=== PATIENT | female | born 1930 | race Caucasian/White ===

== ENCOUNTER 2017-07-17 06:18 | Inpatient (IN) | payer MEDICARE, OTHER ==
[~2017-07-17] VITALS: Ht 162.6 cm; Wt 61.8 kg
[2017-07-17 06:30] VITALS: Ht 162.6 cm; Wt 61.8 kg
[2017-07-17] MEDS ORDERED: NITROGLYCERIN 50 MG/D5W (PMX) 250 ML IV STA (06:30)
[2017-07-17] MEDS ORDERED: HEPARIN 25000 UNITS/250 ML 250 ML IV STA (06:30)
[2017-07-17 06:48] LABS: BASOPHIL # 0.1 10^3/ul (0.0-0.1); BASOPHILS % 0.4 % (0.0-2.0); EOSINOPHILS # 0.3 10^3/ul (0.0-0.5); EOSINOPHILS % 1.9 % (0.0-7.0); HEMATOCRIT 34.8 % (37.0-47.0); HEMOGLOBIN 10.9 g/dl (12.0-16.0); LYMPHOCYTES # 1.7 10^3/ul (0.8-2.9); LYMPHOCYTES % 11.9 % (15.0-51.0); MEAN CORPUSCULAR HEMOGLOBIN 26.7 pg (29.0-33.0); MEAN CORPUSCULAR HGB CONC 31.3 g/dl (32.0-37.0); MEAN CORPUSCULAR VOLUME 85.3 fl (82.0-101.0); MEAN PLATELET VOLUME 10.3 fl (7.4-10.4); MONOCYTE # 0.9 10^3/ul (0.3-0.9); NEUTROPHIL # 11.2 10^3/ul (1.6-7.5); NEUTROPHILS % 79.4 % (39.0-77.0); PLATELET COUNT 227 10^3/UL (140-415); RED BLOOD COUNT 4.08 10^6/ul (4.20-5.40); RED CELL DISTRIBUTION WIDTH 13.5 % (11.5-14.5); WHITE BLOOD COUNT 14.1 10^3/ul (4.8-10.8)
--- NOTE | 2017-07-17 06:55 | RADRPT ---
PROCEDURE: XR Chest. CLINICAL INDICATION: Chest Pain. TECHNIQUE: AP portable chest COMPARISON: None. FINDINGS: The patient is tilted to the left rotated to the right with a poor inspiration. There is a moderate dextrorotoscoliosis of the thoracolumbar spine. The heart is mildly enlarged. There is atheroscleros is of the aorta. Bilateral interstitial lung disease likely all chronic. Increased density at the ba ses is likely due to a combination of technique atelectasis and scarring. Left basilar infiltrate ca nnot be excluded. No definite pulmonary vascular congestion. There is atherosclerosis of the aorta. The bones are osteopenic. IMPRESSION: 1. Mild cardiomegaly and bilateral chronic interstitial lung disease without congestive heart failu re. 2. Increased density at the bases more so left base likely all due to technique atelectasis and sca rring however basilar infiltrates at the left base cannot be excluded. RPTAT:AAJJ Physician Kasi Date Time Electronically viewed and signed by Physician Kasi on 07/17/2017 06:55 BM/
[2017-07-17] MEDS ORDERED: ASPIRIN 300 MG SUPP PR ONE (07:00)
[2017-07-17 07:10] LABS: CREATININE 1.75 mg/dl (0.44-1.00); POTASSIUM 4.5 mmol/L (3.5-5.1)
[2017-07-17 07:27] LABS: TROPONIN-I 1.84 ng/ml (0.00-0.12)
[2017-07-17 07:43] LABS: AADO2 Arterial 190.5 mmHg (7.0-24.0); Allen Test ACCEPTAB; Arterial Base Excess 0 mmol/L (-3.0-3); Arterial COHb 0.3 % (0.0-3.0); Arterial MetHb 0.3 % (0.0-1.5); Arterial Total Hemglobin 10.9 g/dl (12.0-18.0); Blood Gas IEPAP 15/5; Blood Gas PS 10; MODE MASK - BIPAP
[2017-07-17] MEDS ORDERED: SIMV20TA PO (07:54)
[2017-07-17] MEDS ORDERED: GABA100C14 PO (07:55)
[2017-07-17] MEDS ORDERED: AMLO5TAB4 PO (07:55)
[2017-07-17] MEDS ORDERED: CARV12.579 PO (07:56)
[2017-07-17] MEDS ORDERED: DONE10TA7 PO (07:57)
[2017-07-17] MEDS ORDERED: OMEP20CA16 PO (07:58)
--- NOTE | 2017-07-17 08:23 | ERD ---
ER Documentation Chief Complaint Chief Complaint Pt BIB RA mayers from [facility] for possible STEMI. HPI Patient is an 86-year-old female with hypertension who presents as a possible STEMI. Please note the history and physical exam is limited secondary to the patient's shortness of breath and being on BiPAP. The patient was transferred from [facility] as a possible STEMI. She was accepted to the ER by Dr. Prado my partner. The patient had a positive troponin at [facility] as well. She was started on heparin and nitroglycerin drips. She started with shortness of breath and chest pain at 4 AM this morning that was left-sided and constant. She was hypoxic at [facility]. 0 450 she had a troponin of 1.586 at [facility]. Upon review of old medical records this is the patient's first visit to [facility]. ROS All systems reviewed and are negative except as per history of present illness. Medications Home Meds Reported Medications Omeprazole* (Omeprazole*) 20 Mg Capsule.dr, 20 MG PO DAILY, #30 CAP 07/17/17 Donepezil* (Aricept*) 10 Mg Tablet, 10 MG PO DAILY, TAB 07/17/17 Carvedilol* (Carvedilol*) 12.5 Mg Tablet, 12.5 MG PO BID, #60 TAB 07/17/17 Gabapentin* (Gabapentin*) 100 Mg Capsule, 100 MG PO BID, #90 CAP 07/17/17 Amlodipine Besylate* (Norvasc*) 5 Mg Tablet, 5 MG PO DAILY, TAB 07/17/17 Simvastatin* (Zocor*) 20 Mg Tablet, 20 MG PO QHS, #30 TAB 07/17/17 Allergies Allergies: Coded Allergies: No Known Allergy (Unverified , 07/17/17) PMhx/Soc History of Surgery: Yes (B Cataract surgery) Anesthesia Reaction: No Hx Neurological Disorder: No Hx Respiratory Disorders: No Hx Cardiac Disorders: No Hx Psychiatric Problems: No Hx Miscellaneous Medical Probl: No Hx Alcohol Use: No Hx Substance Use: No Hx Tobacco Use: No Smoking Status: Never smoker FmHx Family History: coronary disease Physical Exam Vitals Vital Signs Date Time Temp Pulse Resp B/P Pulse Ox O2 Delivery O2 Flow Rate FiO2 07/17/17 07:52 98 3.0 07/17/17 06:30 98.7 75 18 150/80 99 07/17/17 06:25 93 99 100 Physical Exam Const: Moderate distress Head: Atraumatic Eyes: Normal Conjunctiva ENT: Normal External Ears, Nose and Mouth. Neck: Full range of motion..~ No meningismus. Resp: Clear to auscultation bilaterally Cardio: Regular rate and rhythm, no murmurs Abd: Soft, non tender, non distended. Normal bowel sounds Skin: No petechiae or rashes Back: No midline or flank tenderness Ext: No cyanosis, or edema Neur: Awake and alert Psych: Normal Mood and Affect Result Diagram: 07/17/1735 07/17/17 0635 Results 24 hrs Laboratory Tests Test 07/17/17 06:30 07/17/17 06:35 Blood Gas Specimen Source Blood arterial Arterial Blood Date Drawn 07/17/2017 7:30:31 AM Arterial Blood pH (Temp corrected) 7.395 Arterial Blood pCO2 (Temp correct) 41.7mmhg Arterial Blood pO2 (Temp corrected) 480.8mmHG Arterial Blood HCO3 25.0mmol/L Arterial Blood Base Excess 0mmol/L Arterial Blood Oxygen Saturation 99.6mmHG Ludwig Test ACCEPTAB Arterial Blood Gas Puncture Site Left Radial Arterial Blood Carboxyhemoglobin 0.3% Arterial Blood Methemoglobin 0.3% Blood Gas A-a O2 Differential 190.5mmHg Oxyhemoglobin Percent 99.0% Total Hemoglobin 10.9g/dl Blood Gas Temperature 37.0C Blood Gas Respiration Rate 16.0 Blood Gas Actual Respiration Rate 29 Blood Gas Modality MASK - BIPAP FiO2 100.0% Blood Gas Pressure Support 10 Blood Gas IPAP/EPAP Ratio 15/5 Blood Gas Notified Whom Chrissy Blood Gas Notified Time 07/17/2017 7:42:09 AM White Blood Count 14.110^3/ul Red Blood Count 4.0810^6/ul Hemoglobin 10.9g/dl Hematocrit 34.8% Mean Corpuscular Volume 85.3fl Mean Corpuscular Hemoglobin 26.7pg Mean Corpuscular Hemoglobin Concent 31.3g/dl Red Cell Distribution Width 13.5% Platelet Count 99337^3/UL Mean Platelet Volume 10.3fl Neutrophils % 79.4% Lymphocytes % 11.9% Monocytes % 6.0% Eosinophils % 1.9% Basophils % 0.4% Nucleated Red Blood Cells % 0.0/100WBC Neutrophils # 11.210^3/ul Lymphocytes # 1.710^3/ul Monocytes # 0.910^3/ul Eosinophils # 0.310^3/ul Basophils # 0.110^3/ul Nucleated Red Blood Cells # 0.010^3/ul Sodium Level 141mmol/L Potassium Level 4.5mmol/L Chloride Level 106mmol/L Carbon Dioxide Level 25mmol/L Anion Gap 15 Blood Urea Nitrogen 41mg/dl Creatinine 1.75mg/dl Glucose Level 169mg/dl Calcium Level 9.0mg/dl Troponin I 1.840ng/ml Current Medications Medications (Trade) Dose Ordered Sig/Lauren Route PRN Reason Start Time Stop Time Status Last Admin Dose Admin Nitroglycerin/ Dextrose 250 ml @ 6 mls/hr ONCE STAT IV 07/17/17 06:30 07/19/17 00:09 07/17/17 07:25 Heparin Sodium (Porcine) (Heparin 85074 Units/250 ml) 250 ml @ 0 mls/hr ONCE STAT IV 07/17/17 06:30 07/17/17 06:32 DC 07/17/17 07:43 Aspirin (Aspirin) 300 mg ONCE ONCE MA 07/17/17 07:00 07/17/17 07:01 DC 07/17/17 07:40 Procedures/MDM EKG read by me: Rate/Rhythm: Regular rate and rhythm at a rate of 98 Intervals: Normal Impression: Bifascicular block with ST depressions in lead aVL and V1 and V2 but no ST elevations EKG #2 pending at this time PROCEDURE: XR Chest. CLINICAL INDICATION: Chest Pain. TECHNIQUE: AP portable chest COMPARISON: None. FINDINGS: The patient is tilted to the left rotated to the right with a poor inspiration. There is a moderate dextrorotoscoliosis of the thoracolumbar spine. The heart is mildly enlarged. There is atherosclerosis of the aorta. Bilateral interstitial lung disease likely all chronic. Increased density at the bases is likely due to a combination of technique atelectasis and scarring. Left basilar infiltrate cannot be excluded. No definite pulmonary vascular congestion. There is atherosclerosis of the aorta. The bones are osteopenic. IMPRESSION: 1. Mild cardiomegaly and bilateral chronic interstitial lung disease without congestive heart failure. 2. Increased density at the bases more so left base likely all due to technique atelectasis and scarring however basilar infiltrates at the left base cannot be excluded. RPTAT:AAJJ Physician Kasi Date Time Electronically viewed and signed by Physician Kasi on 07/17/2017 06:55 Patient is an 86-year-old female presents with respiratory failure and acute NSTEMI. There is no sign of STEMI at this time on our EKG or the EKG from [facility]. The patient will be admitted to the panel team under the care of Dr. Rodriguez to the ICU. I also spoke with Dr. Gr from cardiology who requested an echocardiogram and will see the patient for possible urgent cardiac catheterization. The patient has been weaned from BiPAP to nasal cannula oxygen. The patient will be kept n.p.o. The patient is currently on heparin and nitroglycerin drip. I doubt sepsis, pneumonia, pneumothorax, or pulmonary embolism. Critical Care: Time: 35 minutes excluding all billable procedures. Treatments/Evaluations: Close monitoring and treatment of unstable vital signs, cardiorespiratory, and neurologic status, while maintaining tight balance of fluid, respiratory, and cardiac interventions. Departure Diagnosis: Primary Impression: NSTEMI (non-ST elevated myocardial infarction) Additional Impression: Respiratory failure Chronicity: acute Respiratory failure complication: hypoxia Qualified Code : J96.01 - Acute respiratory failure with hypoxia Condition: Critical SOLIS PELAYO MD Jul 17, 2017 08:23
--- NOTE | 2017-07-17 09:26 | HP ---
Date/Time of Note Date/Time of Note DATE: 07/17/17 TIME: 09:14 Assessment/Plan VTE Prophylaxis VTE Prophylaxis Intervention: heparin Lines/Catheters IV Catheter Type (from [facility] Saline Lock Assessment/Plan Assessment/Plan 86-year-old possible STEMI who was transferred from [facility] as, but was reviewed by ER physician here and was determined not to be an actual STEMI. She is currently managed as follows: 1. Non-ST elevation myocardial infarction 2. Acute respiratory failure likely secondary to #1 3. Acute renal failure rule out chronic kidney disease 4. Hypochromic anemia likely chronic 5. Acute resp infection likely L basal pneumonia 6. Chronic hypertension 7. History of dyslipidemia on simvastatin Plan: Admit tele / ICU Urgent cardiology review / heparin drip / gentle hydration if ok with cardiology / 2D echo to eval for HF also include empiric abx and moss culture Possible nephro consult serial labs and supportive care Pain control, antiemetics and antipyretics as needed Further interventions per clincal course close monitoring and supportive care HPI/ROS Admit Date/Time Admit Date/Time 07/17/17 Hx of Present Illness 86-year-old female was referred to emergency room from [facility] as a possible ST elevation myocardial infarction. Patient was found to have elevated troponins and there was report of ST elevations on EKG. However when she arrived here, the emergency room physicians could not find any evidence of STEMI. He recommended admission as a non-ST elevation myocardial infarction. However patient's family reports that patient has been ill for a few days now with fever [subjective], cough, and chills. There is a to go to the hospital was because she became short of breath, and when EMS arrived they also found that she had elevated blood pressures. He is being admitted for further management and care as well as cardiology review here. The patient denies abdominal pain or cramping, denies blood in urine or stool, denies also dysuria or hematuria. There are no passing out episodes, and there are no joint pain or extremity weakness. . ROS 12 point review if systems was done and pertinent findings are as noted. PMH/Family/Social Past Medical History 1. Hypertension 2. Dyslipidemia Past Surgical History Cataract surgery Family History Significant Family History: no pertinent family hx Social History Alcohol Use: none Smoking Status: Never smoker Drug Use: none Exam/Review of Systems Vital Signs Vitals VS - Last 72 Hours, by Label Date Time Temp Pulse Resp B/P Pulse Ox O2 Delivery O2 Flow Rate FiO2 07/17/17 08:16 98.7 80 20 142/75 99 Nasal Cannula 3.0 07/17/17 07:52 98 3.0 07/17/17 06:30 98.7 75 18 150/80 99 07/17/17 06:25 93 99 100 Vital Signs Date Time Temp Pulse Resp B/P Pulse Ox O2 Delivery O2 Flow Rate FiO2 07/17/17 08:16 98.7 80 20 142/75 99 Nasal Cannula 3.0 07/17/17 06:25 100 Exam Constitutional: alert, frail, other (acutely ill looking) Head: normocephalic Eyes: PERRL ENMT: No mucosa pink and moist (Issue into the stomach think you should know the up to 1 patient when the EKG when the) Respiratory: crackles/rales, diminished breath sounds, wheezing Cardiovascular: murmurs/extra sounds, regular rate and rhythm Gastrointestinal: bowel sounds, non-tender, soft Extremities: edema Neurological: lethargic Labs Result Diagram: 07/17/17 0635 07/17/17 0635 Procedures Procedures Laboratory Tests Test 07/17/17 06:30 07/17/17 06:35 Blood Gas Specimen Source Blood arterial Arterial Blood Date Drawn 07/17/2017 7:30:31 AM Arterial Blood pH (Temp corrected) 7.395 Arterial Blood pCO2 (Temp correct) 41.7mmhg Arterial Blood pO2 (Temp corrected) 480.8mmHG Arterial Blood HCO3 25.0mmol/L Arterial Blood Base Excess 0mmol/L Arterial Blood Oxygen Saturation 99.6mmHG Ludwig Test ACCEPTAB Arterial Blood Gas Puncture Site Left Radial Arterial Blood Carboxyhemoglobin 0.3% Arterial Blood Methemoglobin 0.3% Blood Gas A-a O2 Differential 190.5mmHg Oxyhemoglobin Percent 99.0% Total Hemoglobin 10.9g/dl Blood Gas Temperature 37.0C Blood Gas Respiration Rate 16.0 Blood Gas Actual Respiration Rate 29 Blood Gas Modality MASK - BIPAP FiO2 100.0% Blood Gas Pressure Support 10 Blood Gas IPAP/EPAP Ratio 15/5 Blood Gas Notified Whom Chrissy Blood Gas Notified Time 07/17/2017 7:42:09 AM White Blood Count 14.110^3/ul Red Blood Count 4.0810^6/ul Hemoglobin 10.9g/dl Hematocrit 34.8% Mean Corpuscular Volume 85.3fl Mean Corpuscular Hemoglobin 26.7pg Mean Corpuscular Hemoglobin Concent 31.3g/dl Red Cell Distribution Width 13.5% Platelet Count 75405^3/UL Mean Platelet Volume 10.3fl Neutrophils % 79.4% Lymphocytes % 11.9% Monocytes % 6.0% Eosinophils % 1.9% Basophils % 0.4% Nucleated Red Blood Cells % 0.0/100WBC Neutrophils # 11.210^3/ul Lymphocytes # 1.710^3/ul Monocytes # 0.910^3/ul Eosinophils # 0.310^3/ul Basophils # 0.110^3/ul Nucleated Red Blood Cells # 0.010^3/ul Sodium Level 141mmol/L Potassium Level 4.5mmol/L Chloride Level 106mmol/L Carbon Dioxide Level 25mmol/L Anion Gap 15 Blood Urea Nitrogen 41mg/dl Creatinine 1.75mg/dl Glucose Level 169mg/dl Calcium Level 9.0mg/dl Troponin I 1.840ng/ml Current Medications Medications (Trade) Dose Ordered Sig/Lauren Route PRN Reason Start Time Stop Time Status Last Admin Dose Admin Nitroglycerin/ Dextrose 250 ml @ 6 mls/hr ONCE STAT IV 07/17/17 06:30 07/19/17 00:09 07/17/17 07:25 6 MLS/HR Heparin Sodium (Porcine) (Heparin 91199 Units/250 ml) 250 ml @ 0 mls/hr ONCE STAT IV 07/17/17 06:30 07/17/17 06:32 DC 07/17/17 07:43 0 MLS/HR Aspirin (Aspirin) 300 mg ONCE ONCE MS 07/17/17 07:00 07/17/17 07:01 DC 07/17/17 07:40 300 MG PROCEDURE: XR Chest. CLINICAL INDICATION: Chest Pain. TECHNIQUE: AP portable chest COMPARISON: None. FINDINGS: The patient is tilted to the left rotated to the right with a poor inspiration. There is a moderate dextrorotoscoliosis of the thoracolumbar spine. The heart is mildly enlarged. There is atherosclerosis of the aorta. Bilateral interstitial lung disease likely all chronic. Increased density at the bases is likely due to a combination of technique atelectasis and scarring. Left basilar infiltrate cannot be excluded. No definite pulmonary vascular congestion. There is atherosclerosis of the aorta. The bones are osteopenic. IMPRESSION: 1. Mild cardiomegaly and bilateral chronic interstitial lung disease without congestive heart failure. 2. Increased density at the bases more so left base likely all due to technique atelectasis and scarring however basilar infiltrates at the left base cannot be excluded. RPTAT:AAJJ Physician Kasi Date Time Electronically viewed and signed by Physician Kasi on 07/17/2017 06:55 BM/ CC: SOLIS PELAYO MD I reviewed EKG Rate: Rhythm: Note: BRIA COFFEY Jul 17, 2017 09:25
[2017-07-17] MEDS ORDERED: morphine 2 MG INJ IV PRN (09:30)
[2017-07-17] MEDS ORDERED: SOD CHLORIDE 0.9% 1,000 ML IV SCH (09:30)
[2017-07-17 10:06] LABS: ALBUMIN 3.7 g/dl (3.3-4.9); BILIRUBIN,INDIRECT 0.3 mg/dl (0-1.1); BILIRUBIN,TOTAL 0.3 mg/dl (0.2-1.3); MAGNESIUM 1.9 mg/dl (1.7-2.5); TOTAL PROTEIN 7.4 g/dl (6.1-8.1)
[2017-07-17 10:29] LABS: ADD UMIC YES; UR ASCORBIC ACID NEGATIVE (NEGATIVE); UR BACTERIA FEW /HPF (NONE SEEN); UR BILIRUBIN (Dip) NEGATIVE (NEGATIVE); UR BLOOD (Dip) 2+ mg/dL (NEGATIVE); UR CLARITY CLEAR (CLEAR); UR COLOR YELLOW (YELLOW); UR GLUCOSE (Dip) NEGATIVE (NEGATIVE); UR KETONES (Dip) NEGATIVE (NEGATIVE); UR LEUKOCYTE ESTERASE (Dip) NEGATIVE Leu/ul (NEGATIVE); UR NITRITE (Dip) NEGATIVE (NEGATIVE); UR RBC 65 /HPF (0-5); UR SPECIFIC GRAVITY (Dip) 1.018 (1.003-1.030); UR TOTAL PROTEIN (Dip) 2+ mg/dl (NEGATIVE); UR UROBILINOGEN (Dip) NEGATIVE (NEGATIVE)
--- NOTE | 2017-07-17 11:27 | RADRPT ---
Echocardiogram Report Patient Name: GIUSEPPE HOOK Gender: Female Date: 1930 Study Date: 17-Jul-2017 [facility] Specialist: Gage Dang [facility] Location: [facility] Ref. Physician: SOLIS PELAYO Quality: Adequate Procedures: Transthoracic echocardiogram with complete 2D, M-Mode, and doppler examination. Indications: NSTEMI. 2D/M Mode Doppler Measurement Value Normal Ranges Measurement Value Normal Ranges LVIDd 2D 4.3 3.5 - 5.6 cm SAW Vmax 0.5 cm2 LVIDs 2D 3.2 2.1 - 4.1 cm SAW VTI 0.5 cm2 LVPWd 2D 1.3 0.6 - 1.1 cm LVOT Mean Demetrius 0.6 m/sec IVSd 2D 1.3 0.6 - 1.1 cm LVOT Mean PG 1.5 mmHg AoR Diam 2D 2.8 2.0 - 3.7 cm LVOT Peak Demetrius 0.9 m/sec EDV 2D 84.0 cm3 LVOT Peak PG 3.3 mmHg ESV 2D 34.0 cm3 LVOT VTI 27.1 cm LA Dimen 2D 4.2 2.3 - 4.0 cm MV E Peak Demetrius 1.7 m/sec LVOT Diam 1.8 cm MV A Peak Demetrius 1.9 m/sec MV E/A 0.9 MV Decel Time 159 msec MV Decel [place] 10 MV E/A 0.9 TR Peak Demetrius 3.7 m/sec TR Peak PG 56.0 mmHg RVSP 71.0 mmHg Findings Left Ventricle: Normal left ventricular systolic function. Normal left ventricular cavity size. Moderate concentric left ventricular hypertrophy. Ejection fraction is visually estimated at 55 %. Tissue Doppler/Mitral Doppler indices are consistent with impaired relaxation (Stage I diastolic dysfunction). Right Ventricle: Normal right ventricular size. Normal right ventricular systolic function. Left Atrium: There is mild enlargement of left atrium. Right Atrium: The right atrium is normal in size. Mitral Valve: Mild mitral leaflet calcification. Mild mitral annular calcification. Mild mitral valve regurgitation. Aortic Valve: Severe aortic stenosis. Aortic valve Max velocity 4.69 m/sec. Mean PG 52.00 mmHg. Aortic cusps appear moderately calcified. Trace aortic valve regurgitation. Tricuspid Valve: Normal appearance of the tricuspid valve. Estimated peak PA systolic pressure 71 mmHg. There is mild tricuspid regurgitation. Pulmonic Valve: Pulmonic valve not well visualized. There is mild pulmonic regurgitation. Pericardium: Normal pericardium with no significant pericardial effusion. Aorta: Normal aortic root. IVC: Dilated inferior vena cava with poor inspiratory collapse consistent with elevated right atrial pressures. Conclusions Normal left ventricular systolic function. Normal left ventricular cavity size. Moderate concentric left ventricular hypertrophy. Ejection fraction is visually estimated at 55 %. Tissue Doppler/Mitral Doppler indices are consistent with impaired relaxation (Stage I diastolic dysfunction). Normal right ventricular size. Normal right ventricular systolic function. There is mild enlargement of left atrium. The right atrium is normal in size. Severe aortic stenosis. Trace aortic valve regurgitation. Mild mitral valve regurgitation. Estimated peak PA systolic pressure 71 mmHg. There is mild tricuspid regurgitation. There is mild pulmonic regurgitation. Normal pericardium with no significant pericardial effusion. Electronically Signed By: Harjinder Drew 17-Jul-2017 11:27:09 -0800 Patient Name: GIUSEPPE HOOK Study Date: [id number]
[2017-07-17] MEDS ORDERED: FUROSEMIDE 40 MG INJ IV ONE ×2 (11:30→19:30)
[2017-07-17 11:52] LABS: CALCIUM 8.9 mg/dl (8.4-10.2); CREATININE 1.68 mg/dl (0.44-1.00); POTASSIUM 4.7 mmol/L (3.5-5.1)
[2017-07-17 12:04] LABS: CK-MB 3.01 ng/ml (0.0-2.4)
[2017-07-17 12:05] LABS: TROPONIN-I 2.24 ng/ml (0.00-0.12)
--- NOTE | 2017-07-17 12:53 | CONS ---
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 Patient was initially on BiPAP and not currently off. She denies any chest discomfort. Echocardiogram with preserved ejection fraction with evidence of severe aortic stenosis and dilated IVC. Extensive discussion had with the patient and family at bedside. Family at the current time is requesting a conservative approach given the concerned of the risks of cardiac catheterization. Would continue IV heparin, IV diuretics, serial cardiac enzymes, aspirin and statin therapy. Consultation Date/Type/Reason Admit Date/Time 07/17/17 Type of Consultation: cv Reason for Consultation Shortness of breath and elevated troponin Hx of Present Illness This is an 86-year-old female with past medical history of hypertension who has been having 4-5 days symptoms of chills, productive cough and fatigue. Symptoms have worsened throughout the past few days. Yesterday evening, patient woke up with shortness of breath and palpitations. She denies any chest discomfort. She was walking to the bathroom and she felt her shortness of breath worsen so she called her family from the other room. As per the [id number], patient's blood pressure was quite elevated when EMS arrived. Patient was initially transferred to an outside hospital and then transferred to our facility for further management care. Patient was put on IV heparin, nitroglycerin and BiPAP with significant improvement in symptoms. Her shortness of breath is mildly present but significantly improved. She denies any chest discomfort, palpitations or dizziness. She does still complain of a cough and wheezing. 12 point review of systems was performed with all pertinent positives and negatives mentioned above and all else is negative Past Medical History Medical History: high cholesterol, hypertension Past Surgical History Past Surgical Hx: no surgical history Family History Significant Family History: no pertinent family hx Social History Alcohol Use: none Smoking Status: Never smoker Other Social History Lives at home with family Exam/Review of Systems Vital Signs Vitals Vital Signs Date Time Temp Pulse Resp B/P Pulse Ox O2 Delivery O2 Flow Rate FiO2 07/17/17 11:50 98.7 78 20 149/79 100 Nasal Cannula 3.0 07/17/17 06:25 100 Exam Coughing at times during exam, occasionally dyspneic Constitutional: alert, oriented Head: normocephalic Respiratory: other (Coarse breath sounds bilaterally with scattered rhonchi and mild and expiratory wheezing) Cardiovascular: regular rate and rhythm, systolic murmur Gastrointestinal: bowel sounds, non-tender, soft Extremities: edema Results Result Diagram: 07/17/17 0635 07/17/17 1100 Results 24 hrs Laboratory Tests Test 07/17/17 06:30 07/17/17 06:35 07/17/17 09:50 07/17/17 11:00 Blood Gas Specimen Source Blood arterial Arterial Blood Date Drawn 07/17/2017 7:30:31 AM Arterial Blood pH (Temp corrected) 7.395 Arterial Blood pCO2 (Temp correct) 41.7 Arterial Blood pO2 (Temp corrected) 480.8 H Arterial Blood HCO3 25.0 Arterial Blood Base Excess 0 Arterial Blood Oxygen Saturation 99.6 Ludwig Test ACCEPTAB Arterial Blood Gas Puncture Site Left Radial Arterial Blood Carboxyhemoglobin 0.3 Arterial Blood Methemoglobin 0.3 Blood Gas A-a O2 Differential 190.5 H Oxyhemoglobin Percent 99.0 Total Hemoglobin 10.9 L Blood Gas Temperature 37.0 Blood Gas Respiration Rate 16.0 Blood Gas Actual Respiration Rate 29 Blood Gas Modality MASK - BIPAP FiO2 100.0 Blood Gas Pressure Support 10 Blood Gas IPAP/EPAP Ratio 15/5 Blood Gas Notified Whom M.DChristina Blood Gas Notified Time 07/17/2017 7:42:09 AM Magnesium Level 1.9 Total Bilirubin 0.3 Direct Bilirubin 0.00 Indirect Bilirubin 0.3 Aspartate Amino Transf (AST/SGOT) 49 H Alanine Aminotransferase (ALT/SGPT) 45 Alkaline Phosphatase 109 Total Protein 7.4 Albumin 3.7 White Blood Count 14.1 H Red Blood Count 4.08 L Hemoglobin 10.9 L Hematocrit 34.8 L Mean Corpuscular Volume 85.3 Mean Corpuscular Hemoglobin 26.7 L Mean Corpuscular Hemoglobin Concent 31.3 L Red Cell Distribution Width 13.5 Platelet Count 227 Mean Platelet Volume 10.3 Neutrophils % 79.4 H Lymphocytes % 11.9 L Monocytes % 6.0 Eosinophils % 1.9 Basophils % 0.4 Nucleated Red Blood Cells % 0.0 Neutrophils # 11.2 H Lymphocytes # 1.7 Monocytes # 0.9 Eosinophils # 0.3 Basophils # 0.1 Nucleated Red Blood Cells # 0.0 Sodium Level 141 140 Potassium Level 4.5 4.7 Chloride Level 106 105 Carbon Dioxide Level 25 24 Anion Gap 15 16 Blood Urea Nitrogen 41 H 40 H Creatinine 1.75 H 1.68 H Glucose Level 169 135 Calcium Level 9.0 8.9 Troponin I 1.840 *H 2.240 *H Urine Color YELLOW Urine Clarity CLEAR Urine pH 5.0 Urine Specific [place] 1.018 Urine Ketones NEGATIVE Urine Nitrite NEGATIVE Urine Bilirubin NEGATIVE Urine Urobilinogen NEGATIVE Urine Leukocyte Esterase NEGATIVE Urine Microscopic RBC 65 H Urine Microscopic WBC 1 Urine Bacteria FEW A Urine Hemoglobin 2+ H Urine Glucose NEGATIVE Urine Total Protein 2+ H Creatine Kinase 153 Creatine Kinase Index 2.0 Creatinine Kinase MB (Mass) 3.01 H Test 07/17/17 11:34 Activated Partial Thromboplast Time 80.3 *H Mix PTT Normal Plasma Immediate Pending Medications Medications Current Medications Amlodipine Besylate (Norvasc) 5 mg DAILY PO ; Start 07/18/17 at 09:00 Carvedilol (Coreg) 12.5 mg BID PO ; Start 07/17/17 at 21:00 Donepezil HCl (Aricept) 10 mg DAILY PO ; Start 07/18/17 at 09:00 Gabapentin (Neurontin) 100 mg BID PO ; Start 07/17/17 at 21:00 Pantoprazole (Protonix Tab) 40 mg DAILY@06 PO ; Start 07/18/17 at 06:00 Atorvastatin Calcium (Lipitor) 20 mg HS PO ; Start 07/17/17 at 21:00 Ondansetron HCl 4 mg 4 mg Q6H PRN IV NAUSEA AND/OR VOMITING; Start 07/17/17 at 09:30 Sodium Chloride (NS) 1,000 ml @ 75 mls/hr [id number] IV Last administered on t 09:39; Admin Dose 75 MLS/HR; Start 07/17/17 at 09:30; Stop 07/18/17 at 12:09 Morphine Sulfate (morphine) 2 mg Q4H PRN IV pain; Start 07/17/17 at 09:30 Docusate Sodium (Colace) 100 mg BID PO ; Start 07/17/17 at 21:00 Procedures Procedures ECG sinus rhythm at 86 bpm, PACs, right bundle branch block, nonspecific ST abnormalities, QRS 134 ms Harjinder Drew DO Jul 17, 2017 12:53
[2017-07-17] MEDS ORDERED: MAGNESIUM SULFATE 1 GM/D5W 100 ML IVPB ONE (13:00)
[2017-07-17] MEDS: CEFTRIAXONE 1 GM/50 ML (PMX) 50 ML IVPB SCH (15:15)
[2017-07-17] MEDS: AZITHROMYCIN 500MG/NS (PMX) 250 ML IVPB SCH (15:34)
[2017-07-17 18:19] LABS: CK-MB 2.99 ng/ml (0.0-2.4); TROPONIN-I 2.23 ng/ml (0.00-0.12)
[2017-07-17] MEDS ORDERED: hydrALAzine 20 MG INJ IV PRN (18:30)
[2017-07-17] MEDS ORDERED: NITROGLYCERIN (SL) 0.4 MG TAB SL ONE (19:00)
--- NOTE | 2017-07-17 19:49 | RADRPT ---
PROCEDURE: XR Chest. CLINICAL INDICATION: Dyspnea. TECHNIQUE: Single frontal view of the chest. COMPARISON: Plain film chest dated today, about 1 hour ago. FINDINGS: Dual chest wall transcutaneous cardiac pacer is. Cardiomegaly. Atherosclerotic calcifications in the thoracic aorta. Pulmonary mass congestion and patchy air space disease at lung bases. Airspace dise ase is mildly decreased over the interval.. No signs of pleural fluid or pneumothorax are seen. The osseous structures and soft tissues are unremarkable. IMPRESSION: Cardiomegaly and decreased mild to moderate failure. RPTAT: [facility] Physician Larisa Date Time Electronically viewed and signed by Physician Larisa on 07/17/2017 19:49 RS/
[2017-07-17 19:57] LABS: INR 1.02; PROTIME 13.5 Sec (11.9-14.9); PT RATIO 1.1
[2017-07-17 20:11] LABS: PARTIAL THROMBOPLASTIN TIME 72.9 Sec (25.0-35.0)
[2017-07-17] MEDS: GABAPENTIN 100 MG CAP PO SCH (20:36)
[2017-07-17] MEDS ORDERED: ATORVASTATIN 20 MG TAB PO SCH (21:00)
[2017-07-17] MEDS: DOCUSATE SODIUM 100 MG CAP PO SCH (21:06)
[2017-07-17] MEDS: ATORVASTATIN 20 MG TAB PO SCH (21:07)
[2017-07-17 22:18] LABS: CK-MB 2.68 ng/ml (0.0-2.4)
[2017-07-17 22:22] LABS: TROPONIN-I 1.99 ng/ml (0.00-0.12)
[2017-07-18] VITALS (11 sets, daily range): BP systolic 86–126; BP diastolic 51–73; PULSE 69–87; RESP 19–33; TEMP 98
[2017-07-18 02:41] LABS: INR 1.11; PROTIME 14.5 Sec (11.9-14.9); PT RATIO 1.1
[2017-07-18 03:25] LABS: PARTIAL THROMBOPLASTIN TIME 76.6 Sec (25.0-35.0)
[2017-07-18] MEDS: DONEPEZIL 10 MG TAB PO SCH (03:57)
[2017-07-18 05:40] LABS: BASOPHILS % 0.2 % (0.0-2.0); EOSINOPHILS # 0.1 10^3/ul (0.0-0.5); HEMOGLOBIN 9.1 g/dl (12.0-16.0); MEAN CORPUSCULAR HEMOGLOBIN 26.9 pg (29.0-33.0); MEAN CORPUSCULAR HGB CONC 31.4 g/dl (32.0-37.0); MEAN CORPUSCULAR VOLUME 85.8 fl (82.0-101.0); MEAN PLATELET VOLUME 9.9 fl (7.4-10.4); MONOCYTE # 0.8 10^3/ul (0.3-0.9); MONOCYTES % 7.8 % (0.0-11.0); NEUTROPHIL # 7.2 10^3/ul (1.6-7.5); NEUTROPHILS % 70.7 % (39.0-77.0); PLATELET COUNT 218 10^3/UL (140-415); RED BLOOD COUNT 3.38 10^6/ul (4.20-5.40); RED CELL DISTRIBUTION WIDTH 13.4 % (11.5-14.5); WHITE BLOOD COUNT 10.2 10^3/ul (4.8-10.8)
[2017-07-18] MEDS ORDERED: FUROSEMIDE 40 MG INJ IV SCH ×3 (06:00→18:00)
--- NOTE | 2017-07-18 06:19 | RADRPT ---
PROCEDURE: XR Chest. CLINICAL INDICATION: CHF TECHNIQUE: AP Portable chest. COMPARISON: CHEST 07/17/2017; CHEST 07/17/2017 FINDINGS: Defibrillator pad overlies the lateral right chest. The cardiomediastinal silhouette is enlarged. The aortic arch is calcified. Interval decrease bilate ral interstitial densities. Probable trace pleural effusions or thickening. No pneumothorax is seen. The bones are demineralized. There are degenerative changes in the spine. IMPRESSION: Interval decreased edema. Cardiomegaly. Aortic atherosclerosis. Physician Aidan Date Time Electronically viewed and signed by Physician Aidan on 07/18/2017 06:18 CS/
[2017-07-18 06:39] LABS: CK-MB 1.65 ng/ml (0.0-2.4)
[2017-07-18 06:40] LABS: TROPONIN-I 2.3 ng/ml (0.00-0.12)
[2017-07-18] MEDS ORDERED: HEPARIN 25000 UNITS/250 ML 250 ML IV STA (07:29)
[2017-07-18 07:38] LABS: CALCIUM 8.6 mg/dl (8.4-10.2); CHOL/HDL RATIO 4.3 RATIO; CREATININE 1.97 mg/dl (0.44-1.00)
--- NOTE | 2017-07-18 09:37 | PN ---
Date/Time of Note Date/Time of Note DATE: 07/18/17 TIME: 09:37 Assessment/Plan VTE Prophylaxis VTE Prophylaxis Intervention: heparin (heparin drip) Lines/Catheters IV Catheter Type (from [facility], [place]): Saline Lock Assessment/Plan Assessment/Plan 86-year-old possible STEMI who was transferred from [facility] as, but was reviewed by ER physician here and was determined not to be an actual STEMI. She is currently managed as follows: 1. Non-ST elevation myocardial infarction 2. Acute respiratory failure likely secondary to #1 3. Acute renal failure rule out chronic kidney disease 4. Hypochromic anemia likely chronic 5. Acute resp infection likely L basal pneumonia 6. Chronic hypertension 7. History of dyslipidemia on simvastatin 8. 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 Severe aortic stenosis Plan: Continue heparin drip until d/c per cardiology Continue abx Nephro consult to help with diuresis Commence diet if ok with cards f/u final cultures continue supportive care defer decision to downgrade to cards. CC time > 40mins Subjective 24 Hr Interval Summary Free Text/Dictation patient looking and feeling better per family, still not speaking much but looks more comfortable, no chest pain Exam/Review of Systems Vital Signs Vitals Vital Signs Date Time Temp Pulse Resp B/P Pulse Ox O2 Delivery O2 Flow Rate FiO2 07/18/17 07:32 98 3.0 07/18/17 06:30 76 20 131/62 BIPAP 07/18/17 05:45 50 07/18/17 05:36 98.5 Intake and Output 07/17/17 07/17/17 07/18/17 15:00 23:00 07:00 Output Total 750 ml 300 ml Balance -750 ml -300 ml Exam Constitutional: alert, frail, oriented Head: normocephalic Eyes: PERRL ENMT: mucosa pink and moist Neck: supple Respiratory: diminished breath sounds, respirations (mild tachypnea) Cardiovascular: murmurs/extra sounds, regular rate and rhythm Gastrointestinal: bowel sounds, non-tender, soft Extremities: No edema Neurological: lethargic Results Result Diagram: 07/18/17 0532 07/18/17 0532 Results 24 hrs Laboratory Tests Test 07/17/17 09:50 07/17/17 11:00 07/17/17 11:34 07/17/17 17:20 Urine Color YELLOW Urine Clarity CLEAR Urine pH 5.0 Urine Specific [place] 1.018 Urine Ketones NEGATIVE Urine Nitrite NEGATIVE Urine Bilirubin NEGATIVE Urine Urobilinogen NEGATIVE Urine Leukocyte Esterase NEGATIVE Urine Microscopic RBC 65 H Urine Microscopic WBC 1 Urine Bacteria FEW A Urine Hemoglobin 2+ H Urine Glucose NEGATIVE Urine Total Protein 2+ H Sodium Level 140 Potassium Level 4.7 Chloride Level 105 Carbon Dioxide Level 24 Anion Gap 16 Blood Urea Nitrogen 40 H Creatinine 1.68 H Glucose Level 135 Calcium Level 8.9 Creatine Kinase 153 133 Creatine Kinase Index 2.0 2.2 Creatinine Kinase MB (Mass) 3.01 H 2.99 H Troponin I 2.240 *H 2.230 *H Activated Partial Thromboplast Time 80.3 *H Test 07/17/17 19:00 07/17/17 21:10 07/18/17 01:40 07/18/17 03:40 Prothrombin Time 13.5 14.5 Prothrombin Time Ratio 1.1 1.1 INR International Normalized Ratio 1.02 1.11 Activated Partial Thromboplast Time 72.9 *H 76.6 *H 59.8 H Creatine Kinase 111 Creatine Kinase Index 2.4 Creatinine Kinase MB (Mass) 2.68 H Troponin I 1.990 *H Test 07/18/17 05:32 07/18/17 07:38 White Blood Count 10.2 # Red Blood Count 3.38 L Hemoglobin 9.1 L Hematocrit 29.0 L Mean Corpuscular Volume 85.8 Mean Corpuscular Hemoglobin 26.9 L Mean Corpuscular Hemoglobin Concent 31.4 L Red Cell Distribution Width 13.4 Platelet Count 218 Mean Platelet Volume 9.9 Neutrophils % 70.7 Lymphocytes % 20.0 Monocytes % 7.8 Eosinophils % 1.0 Basophils % 0.2 Nucleated Red Blood Cells % 0.0 Neutrophils # 7.2 Lymphocytes # 2.0 Monocytes # 0.8 Eosinophils # 0.1 Basophils # 0.0 Nucleated Red Blood Cells # 0.0 Activated Partial Thromboplast Time 54.7 H 60.0 H Mix PTT Normal Plasma Immediate Pending Sodium Level 142 Potassium Level 4.0 Chloride Level 107 Carbon Dioxide Level 21 Anion Gap 18 H Blood Urea Nitrogen 44 H Creatinine 1.97 H Glucose Level 121 Calcium Level 8.6 Creatine Kinase 75 Creatine Kinase Index 2.2 Creatinine Kinase MB (Mass) 1.65 Troponin I 2.300 *H Triglycerides Level 145 Cholesterol Level 165 LDL Cholesterol, Calculated 98 HDL Cholesterol 38 Cholesterol/HDL Ratio 4.3 Thyroid Stimulating Hormone (TSH) Pending Medications Medications Current Medications Amlodipine Besylate (Norvasc) 5 mg DAILY PO ; Start 07/18/17 at 09:00 Carvedilol (Coreg) 12.5 mg BID PO Last administered on 07/17/17 21:06; Admin Dose 12.5 MG; Start 07/17/17 at 21:00 Donepezil HCl (Aricept) 10 mg DAILY PO ; Start 07/18/17 at 09:00 Gabapentin (Neurontin) 100 mg BID PO ; Start 07/17/17 at 21:00 Pantoprazole (Protonix Tab) 40 mg DAILY@06 PO ; Start 07/18/17 at 06:00 Ondansetron HCl (Zofran Inj) 4 mg Q6H PRN IV NAUSEA AND/OR VOMITING; Start at 09:30 Morphine Sulfate (morphine) 2 mg Q4H PRN IV pain; Start 07/17/17 at 09:30 Docusate Sodium (Colace) 100 mg BID PO Last administered on 07/17/17 21:06; Admin Dose 100 MG; Start 07/17/17 at 21:00 Atorvastatin Calcium (Lipitor) 80 mg HS PO Last administered on 07/17/17 21: 07; Admin Dose 80 MG; Start 07/17/17 at 21:00 Aspirin (Aspirin) 81 mg DAILY PO ; Start 07/18/17 at 09:00 Hydralazine HCl 10 mg 10 mg Q8H PO Last administered on 07/17/17 21:06; Admin Dose 10 MG; Start 07/17/17 at 21:00 Ceftriaxone Sodium 50 ml @ 100 mls/hr Q24H IVPB Last administered on 15:15; Admin Dose 100 MLS/HR; Start 07/17/17 at 15:00 Azithromycin (Zithromax 500mg/ NS (Pmx)) 250 ml @ 250 mls/hr Q24H IVPB Last administered on 07/17/17 15:34; Admin Dose 250 MLS/HR; Start 07/17/17 at 15: 00 Hydralazine HCl (Apresoline) 10 mg Q6H PRN IV sbp>150; Start 07/17/17 at 18:30 Furosemide (Lasix) 40 mg 06 IV Last administered on 07/18/17t 05:38; Admin Dose 40 MG; Start 07/18/17 at 06:00 Procedures Procedures PROCEDURE: Renal US. CLINICAL INDICATION: Acute kidney injury. TECHNIQUE: Multiple sonographic images of the kidneys and urinary bladder were obtained. The images were reviewed on a PACS workstation. COMPARISON: No prior studies are available for comparison. FINDINGS: The right kidney measures 9.9 cm. The left kidney measures 10.3 cm. There is no renal mass. There is no hydronephrosis. There is no renal calculus. Renal parenchymal thickness is normal bilaterally. Both kidneys are hyperechoic consistent with medical renal disease. The perirenal regions are normal with no fluid collection or mass. There is a Haddad catheter in the urinary bladder. IMPRESSION: 1. Bilateral hyperechoic kidneys consistent with medical renal disease. 2. No hydronephrosis. 3. Haddad catheter in the bladder. 4. Otherwise normal renal ultrasound. RPTAT: QQ .Hernandez Granados MD, Date Time Electronically viewed and signed by .Hernandez Granados MD, MD on 07/18/2017 15:33 .R/ CC: LUCRETIA SERRANO MD Echocardiogram Report Patient Name: GIUSEPPE HOOK Gender: Female Date: 1930 Study Date: 17-Jul-2017 Dean Of Women: Gage Dang [facility] Location: ER-4 Ref. Physician: SOLIS PELAYO Quality: Adequate Procedures: Transthoracic echocardiogram with complete 2D, M-Mode, and doppler examination. Indications: NSTEMI. 2D/M Mode Doppler Measurement Value Normal Ranges Measurement Value Normal Ranges LVIDd 2D 4.3 3.5 - 5.6 cm SAW Vmax 0.5 cm2 LVIDs 2D 3.2 2.1 - 4.1 cm ASW VTI 0.5 cm2 LVPWd 2D 1.3 0.6 - 1.1 cm LVOT Mean Demetrius 0.6 m/sec IVSd 2D 1.3 0.6 - 1.1 cm LVOT Mean PG 1.5 mmHg AoR Diam 2D 2.8 2.0 - 3.7 cm LVOT Peak Demetrius 0.9 m/sec EDV 2D 84.0 cm3 LVOT Peak PG 3.3 mmHg ESV 2D 34.0 cm3 LVOT VTI 27.1 cm LA Dimen 2D 4.2 2.3 - 4.0 cm MV E Peak Demetrius 1.7 m/sec LVOT Diam 1.8 cm MV A Peak Demetrius 1.9 m/sec MV E/A 0.9 MV Decel Time 159 msec MV Decel Tama 10 MV E/A 0.9 TR Peak Demetrius 3.7 m/sec TR Peak PG 56.0 mmHg RVSP 71.0 mmHg Findings Left Ventricle: Normal left ventricular systolic function. Normal left ventricular cavity size. Moderate concentric left ventricular hypertrophy. Ejection fraction is visually estimated at 55 %. Tissue Doppler/Mitral Doppler indices are consistent with impaired relaxation (Stage I diastolic dysfunction). Right Ventricle: Normal right ventricular size. Normal right ventricular systolic function. Left Atrium: There is mild enlargement of left atrium. Right Atrium: The right atrium is normal in size. Mitral Valve: Mild mitral leaflet calcification. Mild mitral annular calcification. Mild mitral valve regurgitation. Aortic Valve: Severe aortic stenosis. Aortic valve Max velocity 4.69 m/sec. Mean PG 52.00 mmHg. Aortic cusps appear moderately calcified. Trace aortic valve regurgitation. Tricuspid Valve: Normal appearance of the tricuspid valve. Estimated peak PA systolic pressure 71 mmHg. There is mild tricuspid regurgitation. Pulmonic Valve: Pulmonic valve not well visualized. There is mild pulmonic regurgitation. Pericardium: Normal pericardium with no significant pericardial effusion. Aorta: Normal aortic root. IVC: Dilated inferior vena cava with poor inspiratory collapse consistent with elevated right atrial pressures. Conclusions Normal left ventricular systolic function. Normal left ventricular cavity size. Moderate concentric left ventricular hypertrophy. Ejection fraction is visually estimated at 55 %. Tissue Doppler/Mitral Doppler indices are consistent with impaired relaxation (Stage I diastolic dysfunction). Normal right ventricular size. Normal right ventricular systolic function. There is mild enlargement of left atrium. The right atrium is normal in size. Severe aortic stenosis. Trace aortic valve regurgitation. Mild mitral valve regurgitation. Estimated peak PA systolic pressure 71 mmHg. There is mild tricuspid regurgitation. There is mild pulmonic regurgitation. Normal pericardium with no significant pericardial effusion. Electronically Signed By: Harjinder Drew 17-Jul-2017 11:27:09 0800 Patient Name: GIUSEPPE HOOK Study Date: 17-[id number] BRIA COFFEY Jul 18, 2017 09:37
[2017-07-18] MEDS: PANTOPRAZOLE (EC) 40 MG TAB PO SCH (09:59)
[2017-07-18 10:06] LABS: THYROID STIMULATING HORMONE 0.517 MIU/L (0.465-4.680)
--- NOTE | 2017-07-18 11:45 | CONS ---
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 Renal function has been labile. Would continue diuretics as renal function and blood pressure permits. Discussion had with patient's family again, patient made DNR and family does not want invasive approach. Would continue IV heparin, start Plavix therapy, continue aspirin and statin therapy. Consultation Date/Type/Reason Admit Date/Time Initial Consult Date Type of Consultation: cv 24 HR Interval Summary Free Text/Dictation Shortness of breath is better today. Denies chest pain, palpitations or dizziness. She is off BiPAP Exam/Review of Systems Vital Signs Vitals Vital Signs Date Time Temp Pulse Resp B/P Pulse Ox O2 Delivery O2 Flow Rate FiO2 07/18/17 08:30 81 21 138/66 99 BIPAP 07/18/17 07:32 3.0 07/18/17 05:45 50 07/18/17 05:36 98.5 Intake and Output 07/17/17 07/17/17 07/18/17 15:00 23:00 07:00 Output Total 750 ml 300 ml Balance -750 ml -300 ml Exam Slightly tachypneic, no apparent distress Constitutional: alert, oriented Head: normocephalic Respiratory: crackles/rales, other, wheezing Cardiovascular: other (S1-S2 heard), regular rate and rhythm, systolic murmur Gastrointestinal: bowel sounds, non-tender, soft Extremities: edema Results Result Diagram: 07/18/17 0532 07/18/17 0532 Results 24 hrs Laboratory Tests Test 07/17/17 17:20 07/17/17 19:00 07/17/17 21:10 07/18/17 01:40 Creatine Kinase 133 111 Creatine Kinase Index 2.2 2.4 Creatinine Kinase MB (Mass) 2.99 H 2.68 H Troponin I 2.230 *H 1.990 *H Prothrombin Time 13.5 14.5 Prothrombin Time Ratio 1.1 1.1 INR International Normalized Ratio 1.02 1.11 Activated Partial Thromboplast Time 72.9 *H 76.6 *H Test 07/18/17 03:40 07/18/17 05:32 07/18/17 07:38 Activated Partial Thromboplast Time 59.8 H 60.0 H White Blood Count 10.2 # Red Blood Count 3.38 L Hemoglobin 9.1 L Hematocrit 29.0 L Mean Corpuscular Volume 85.8 Mean Corpuscular Hemoglobin 26.9 L Mean Corpuscular Hemoglobin Concent 31.4 L Red Cell Distribution Width 13.4 Platelet Count 218 Mean Platelet Volume 9.9 Neutrophils % 70.7 Lymphocytes % 20.0 Monocytes % 7.8 Eosinophils % 1.0 Basophils % 0.2 Nucleated Red Blood Cells % 0.0 Neutrophils # 7.2 Lymphocytes # 2.0 Monocytes # 0.8 Eosinophils # 0.1 Basophils # 0.0 Nucleated Red Blood Cells # 0.0 Sodium Level 142 Potassium Level 4.0 Chloride Level 107 Carbon Dioxide Level 21 Anion Gap 18 H Blood Urea Nitrogen 44 H Creatinine 1.97 H Glucose Level 121 Calcium Level 8.6 Creatine Kinase 75 Creatine Kinase Index 2.2 Creatinine Kinase MB (Mass) 1.65 Troponin I 2.300 *H Triglycerides Level 145 Cholesterol Level 165 LDL Cholesterol, Calculated 98 HDL Cholesterol 38 Cholesterol/HDL Ratio 4.3 Thyroid Stimulating Hormone (TSH) 0.517 Medications Medications Current Medications Amlodipine Besylate (Norvasc) 5 mg DAILY PO ; Start 07/18/17 at 09:00 Carvedilol (Coreg) 12.5 mg BID PO Last administered on 07/17/17 21:06; Admin Dose 12.5 MG; Start 07/17/17 at 21:00 Donepezil HCl (Aricept) 10 mg DAILY PO ; Start 07/18/17 at 09:00 Gabapentin (Neurontin) 100 mg BID PO ; Start 07/17/17 at 21:00 Pantoprazole (Protonix Tab) 40 mg DAILY@06 PO Last administered on 07/18/17 09:59; Admin Dose 40 MG; Start 07/18/17 at 06:00 Ondansetron HCl (Zofran Inj) 4 mg Q6H PRN IV NAUSEA AND/OR VOMITING; Start at 09:30 Morphine Sulfate (morphine) 2 mg Q4H PRN IV pain; Start 07/17/17 at 09:30 Docusate Sodium (Colace) 100 mg BID PO Last administered on 07/17/17 21:06; Admin Dose 100 MG; Start 07/17/17 at 21:00 Atorvastatin Calcium (Lipitor) 80 mg HS PO Last administered on 07/17/17 21: 07; Admin Dose 80 MG; Start 07/17/17 at 21:00 Aspirin (Aspirin) 81 mg DAILY PO ; Start 07/18/17 at 09:00 Hydralazine HCl 10 mg 10 mg Q8H PO Last administered on 07/17/17 21:06; Admin Dose 10 MG; Start 07/17/17 at 21:00 Ceftriaxone Sodium 50 ml @ 100 mls/hr Q24H IVPB Last administered on 15:15; Admin Dose 100 MLS/HR; Start 07/17/17 at 15:00 Azithromycin (Zithromax 500mg/ NS (Pmx)) 250 ml @ 250 mls/hr Q24H IVPB Last administered on 07/17/17 15:34; Admin Dose 250 MLS/HR; Start 07/17/17 at 15: 00 Hydralazine HCl (Apresoline) 10 mg Q6H PRN IV sbp>150; Start 07/17/17 at 18:30 Harjinder Drew DO Jul 18, 2017 11:45
[2017-07-18] MEDS ORDERED: ALBUTEROL/IPRATROPIUM (NEB) 3 ML AMP HHN STA (12:45)
--- NOTE | 2017-07-18 13:34 | CONS ---
DATE OF ADMISSION: 07/17/2017 DATE OF CONSULTATION: RENAL CONSULTATION REASON FOR CONSULTATION: Renal failure. HISTORY OF PRESENT ILLNESS: This is an 86-year-old woman with a past medical history of hypertensio n, hyperlipidemia who was transferred from [facility] for a possible ST elevation OR. Hi story is currently obtained from the daughter who was present at the bedside. According to the daug hter, the patient has been healthy throughout her life and has never been hospitalized before. Four or 5 days ago they started noticing that the patient was having some flu-like symptoms, some cough and they were just treating her with [id number] flu medications. Last night patient became a cutely short of breath when she was sleeping and the family was worried and took them to the [facility]. When the patient was taken to [facility], the patient was thought to hav e probably a ST elevation OR, found to have elevated troponins and at that time a troponin was 1.5. Creatinine was 1.9. However, when patient arrived here, the physicians could not find any evidence of STEMI. Dr. Drew is on the case. The patient was found to have a non-STEMI and found to have acute respiratory failure with possibly secondary to congestive heart failure. On admission here, B UN was 40 and creatinine was 1.6. Today, BUN is 14, creatinine is 1.97. Troponins have been 1.24, 2.230, 1.990. Chest x-ray showed interval decrease in the pulmonary edema. Patient was given IV La six and renal was consulted. Family at this time has refused angiogram. Currently, in the Haddad ba g there is noted blood. The patient denied any dysuria, any urgency, any nocturia. Denied any naus ea, vomiting, diarrhea prior to this episode. ALLERGIES: NONE. PAST SURGICAL HISTORY: Significant for cataract surgery. MEDICATIONS: The patient was taking at home, Coreg and Norvasc, once in a while will take Tylenol. SOCIAL HISTORY: Noncontributory. No history of smoking, alcohol or any drug use. FAMILY HISTORY: Noncontributory. REVIEW OF SYSTEMS: No evidence of any nausea, vomiting, diarrhea, headache or blurry vision. Patie nt complained of chest pain and shortness of breath. Denies any orthopnea, PND, lower extremity reyna ma. Denies any hematemesis, any melena, any bright red blood per rectum. Denies any NSAID use. De nies any urinary symptoms. VITAL SIGNS: On arrival to ED vital signs were initial blood pressure was 142/75, currently is 138/ 66. PHYSICAL EXAMINATION: VITAL SIGNS: Currently is 138/66, heart rate 81, respirations 22, 99%; however, patient is off of B iPAP. GENERAL: Patient is awake, alert, oriented, slightly tachypneic. NECK: Supple, no JVD. CHEST: Lungs few crackles, rales and wheezing. HEART: Regular rhythm and rhythm, systolic murmur heard. ABDOMEN: Soft, nontender, nondistended, positive normoactive bowel sounds. EXTREMITIES: Trace edema. The patient also has a Haddad, which has some bloody drainage. NEUROLOGIC: Nonfocal. Patient is moving all extremities. DIAGNOSTIC DATA: Sodium is 142, potassium 4.0, chloride 107, bicarbonate 21, BUN of 44, creatinine 1.97 from 1.68, troponin is 2.30. LDL is 98. White count is 10.2, hemoglobin 9.1. UA shows 65 RB Cs, 1 WBC, few bacteria, 2+ hemoglobin and 2+ proteinuria. PT is 60. MEDICATIONS: Patient is currently on: 1. Aspirin. 2. Plavix. 3. Norvasc. 4. Lasix. 5. Coreg. 6. Gabapentin. 7. Rocephin. 8. Hydralazine. ASSESSMENT AND PLAN: This is an 86-year-old lady with a past medical history of hypertension and hy perlipidemia presenting with: 1. Renal failure, acute versus acute on chronic renal failure. We do not have any baseline labs cr eatinine on the patient. The patient had a creatinine of 1.9 when was in [facility] on 09/17/2016. Currently, the creatinine is 1.97, BUN of 44. UA showed 65 RBCs with 1 WBC and 2+ protein. A renal ultrasound not done. There is no history of any diabetes in the past . This could be all secondary to cardiorenal; however, there is proteinuria on the UA which goes ag ainst this, plus patient also has hematuria, but the patient is also on heparin drip. 2. Non-ST elevation myocardial infarction. 3. Severe aortic stenosis. 4. Acute deep ____ diastolic and valvular congestive heart failure. 5. Pulmonary hypertension. 6. Hypertension. 7. Respiratory failure, intermittent BiPAP use. 8. Systemic inflammatory response syndrome. PLAN: 1. At this period of time. The patient is going to go to ICU. 2. We will flush the Haddad, check a [facility] urine culture quantify protein creatinine ratio, urine elec trolytes, urine eosinophils. 3. We will also check a stat renal ultrasound. We will also check for CK levels to check for rhabd o. 4. Agree with continuing gentle doses of Lasix. 5. Patient is at high risk for contrast nephropathy due to advanced age underlying disease and unde rlying kidney failure. However, the patient's family does not want angiogram at this time. 6. Strict I's and O's, daily weights. 7. Renally dose all meds. 8. Avoid nephrotoxic. We will follow the patient closely with you. Thank you, Dr. Mendosa for renal consultation. We will also send for proteinuria workup. Dictated By: LUCRETIA RAMOS/MALLORY Conf#: [id number] DID#: [id number]
--- NOTE | 2017-07-18 15:34 | RADRPT ---
PROCEDURE: Renal US. CLINICAL INDICATION: Acute kidney injury. TECHNIQUE: Multiple sonographic images of the kidneys and urinary bladder were obtained. The imag es were reviewed on a PACS workstation. COMPARISON: No prior studies are available for comparison. FINDINGS: The right kidney measures 9.9 cm. The left kidney measures 10.3 cm. There is no renal mass. There is no hydronephrosis. There is no renal calculus. Renal parenchymal thickness is normal bilaterally. Both kidneys are hyperechoic consistent with medical renal disease. The perirenal regions are normal with no fluid collection or mass. There is a Haddad catheter in the urinary bladder. IMPRESSION: 1. Bilateral hyperechoic kidneys consistent with medical renal disease. 2. No hydronephrosis. 3. Haddad catheter in the bladder. 4. Otherwise normal renal ultrasound. RPTAT: QQ .Hernandez Granados MD, Date Time Electronically viewed and signed by .Hernandez Granados MD, on 07/18/2017 15:33 .R/
[2017-07-18] MEDS: DOCUSATE SODIUM 100 MG CAP PO SCH ×2 (15:58→21:32)
[2017-07-18] MEDS: AMLODIPINE 5 MG TAB PO SCH (15:58)
[2017-07-18] MEDS: AZITHROMYCIN 500MG/NS (PMX) 250 ML IVPB SCH (16:10)
[2017-07-18] MEDS: CEFTRIAXONE 1 GM/50 ML (PMX) 50 ML IVPB SCH (16:10)
[2017-07-18] MEDS: ASPIRIN 81 MG TAB PO SCH ×2 (16:11→16:32)
[2017-07-18] MEDS: CLOPIDOGREL 75 MG TAB PO SCH (16:11)
[2017-07-18] MEDS: GABAPENTIN 100 MG CAP PO SCH ×2 (16:33→21:33)
[2017-07-18] MEDS ORDERED: FUROSEMIDE 40 MG INJ IV ONE (18:00)
[2017-07-18] MEDS: ATORVASTATIN 20 MG TAB PO SCH (21:37)
[2017-07-18] MEDS ORDERED: HEPARIN 1000 UNITS/ML 10 ML INJ IV ONE (23:00)
[2017-07-18] MEDS ORDERED: HEPARIN 25000 UNITS/250 ML 250 ML IV SCH (23:00)
[2017-07-18] MEDS ORDERED: HEPARIN 1000 UNITS/ML 10 ML INJ IV PRN ×2 (23:00)
[2017-07-19] VITALS (28 sets, daily range): BP systolic 87–130; BP diastolic 39–96; PULSE 53–83; RESP 18–31
[2017-07-19] MEDS ORDERED: ACETAMINOPHEN 325 MG TAB PO PRN (04:30)
[2017-07-19] MEDS: ONDANSETRON 4 MG INJ IV PRN (04:36)
[2017-07-19 05:41] LABS: BASOPHILS % 0.4 % (0.0-2.0); EOSINOPHILS # 0.4 10^3/ul (0.0-0.5); EOSINOPHILS % 4.7 % (0.0-7.0); HEMATOCRIT 29.9 % (37.0-47.0); HEMOGLOBIN 9.3 g/dl (12.0-16.0); LYMPHOCYTES % 20.6 % (15.0-51.0); MEAN CORPUSCULAR HEMOGLOBIN 26.6 pg (29.0-33.0); MEAN CORPUSCULAR HGB CONC 31.1 g/dl (32.0-37.0); MEAN CORPUSCULAR VOLUME 85.7 fl (82.0-101.0); MEAN PLATELET VOLUME 10.4 fl (7.4-10.4); MONOCYTE # 0.8 10^3/ul (0.3-0.9); MONOCYTES % 8.8 % (0.0-11.0); NEUTROPHIL # 6.1 10^3/ul (1.6-7.5); PLATELET COUNT 232 10^3/UL (140-415); RED BLOOD COUNT 3.49 10^6/ul (4.20-5.40); RED CELL DISTRIBUTION WIDTH 13.3 % (11.5-14.5); WHITE BLOOD COUNT 9.5 10^3/ul (4.8-10.8)
[2017-07-19] MEDS: PANTOPRAZOLE (EC) 40 MG TAB PO SCH (05:47)
[2017-07-19] MEDS ORDERED: FUROSEMIDE 40 MG INJ IV SCH (06:00)
[2017-07-19 06:11] LABS: CALCIUM 8.6 mg/dl (8.4-10.2); CREATININE 2.27 mg/dl (0.44-1.00); POTASSIUM 3.6 mmol/L (3.5-5.1)
[2017-07-19 08:10] LABS: PROTEIN/CREAT RATIO 1.47 RATIO
[2017-07-19] MEDS: DOCUSATE SODIUM 100 MG CAP PO SCH ×3 (08:25→20:58)
[2017-07-19] MEDS: CLOPIDOGREL 75 MG TAB PO SCH (08:25)
[2017-07-19] MEDS: AMLODIPINE 5 MG TAB PO SCH (08:25)
[2017-07-19] MEDS: GABAPENTIN 100 MG CAP PO SCH ×2 (08:25→20:50)
[2017-07-19] MEDS: DONEPEZIL 10 MG TAB PO SCH (08:26)
--- NOTE | 2017-07-19 08:38 | CONS ---
Date/Time of Note Date/Time of Note DATE: 07/19/17 TIME: 08:33 Consult Date/Type/Reason Admit Date/Time Jul 18, 2017 at 07:08 Initial Consult Date Type of Consultation: cv Subjective Cardiology follow-up progress note: Subjective: Case discussed with the staff and with patient daughter extensively. Patient remained in sinus rhythm. At this point she denies any chest pain or pressure to me. Her breathing has improved and she is on oxygen only. Patient has been transferred to intensive care unit for close monitoring and he is still on heparin drip. He denies any palpitation to me. Family is still insists on medical therapy only. Objective: General: no acute distress HEENT: NC/AT. pupils are equal. round. NECK: NO JVD. no stridor. CV: RRR. systolic ejection murmur; no gallop or rubs. PULM: no wheezing mild rhonchi. GI: SOFT, NT, ND, no rebound or guarding Extremity: trace B/L LE edema. no clubbing. neuro: awake and alert, OX3. Psych: calm and pleasant rectal: deferred .mild : Deferred. Chest x-ray was reviewed. Objective Vital Signs Date Time Temp Pulse Resp B/P Pulse Ox O2 Delivery O2 Flow Rate FiO2 07/19/17 08:00 58 27 118/57 97 Nasal Cannula 2.0 07/19/17 07:30 98.1 07/19/17 01:32 27 Intake and Output 07/18/17 07/18/17 07/19/17 15:00 23:00 07:00 Intake Total 127.16 ml 140.5 ml Output Total 1000 ml 215 ml Balance -872.84 ml -74.5 ml Results/Medications Result Diagram: 07/19/17 0456 07/19/17 0455 Results 24 hrs Laboratory Tests Test 07/18/17 15:20 07/18/17 21:19 07/19/17 02:27 07/19/17 04:55 Activated Partial Thromboplast Time 52.9 H 73.0 *H 72.0 *H Sodium Level 140 Potassium Level 3.6 Chloride Level 103 Carbon Dioxide Level 27 Anion Gap 14 Blood Urea Nitrogen 48 H Creatinine 2.27 H Glucose Level 125 Calcium Level 8.6 Test 07/19/17 04:56 White Blood Count 9.5 Red Blood Count 3.49 L Hemoglobin 9.3 L Hematocrit 29.9 L Mean Corpuscular Volume 85.7 Mean Corpuscular Hemoglobin 26.6 L Mean Corpuscular Hemoglobin Concent 31.1 L Red Cell Distribution Width 13.3 Platelet Count 232 Mean Platelet Volume 10.4 Neutrophils % 65.0 Lymphocytes % 20.6 Monocytes % 8.8 Eosinophils % 4.7 Basophils % 0.4 Nucleated Red Blood Cells % 0.0 Neutrophils # 6.1 Lymphocytes # 2.0 Monocytes # 0.8 Eosinophils # 0.4 Basophils # 0.0 Nucleated Red Blood Cells # 0.0 Troponin I 1.340 *H Medications Current Medications Carvedilol (Coreg) 12.5 mg BID PO Last administered on 07/19/17 08:26; Admin Dose 12.5 MG; Start 07/17/17 at 21:00 Donepezil HCl (Aricept) 10 mg DAILY PO Last administered on 07/19/17 08:26; Admin Dose 10 MG; Start 07/18/17 at 09:00 Gabapentin (Neurontin) 100 mg BID PO Last administered on 07/19/17 08:25; Admin Dose 100 MG; Start 07/17/17 at 21:00 Pantoprazole (Protonix Tab) 40 mg DAILY@06 PO Last administered on 07/19/17 05:47; Admin Dose 40 MG; Start 07/18/17 at 06:00 Ondansetron HCl (Zofran Inj) 4 mg Q6H PRN IV NAUSEA AND/OR VOMITING Last administered on 07/19/17 04:36; Admin Dose 4 MG; Start 07/17/17 at 09:30 Morphine Sulfate (morphine) 2 mg Q4H PRN IV pain; Start 07/17/17 at 09:30 Docusate Sodium (Colace) 100 mg BID PO Last administered on 07/19/17 08:25; Admin Dose 100 MG; Start 07/17/17 at 21:00 Atorvastatin Calcium (Lipitor) 80 mg HS PO Last administered on 07/18/17 21: 37; Admin Dose 80 MG; Start 07/17/17 at 21:00 Aspirin (Aspirin) 81 mg DAILY PO Last administered on 07/18/17 16:32; Admin Dose 81 MG; Start 07/18/17 at 09:00 Hydralazine HCl 10 mg 10 mg Q8H PO Last administered on 07/18/17 15:59; Admin Dose 10 MG; Start 07/17/17 at 21:00 Ceftriaxone Sodium 50 ml @ 100 mls/hr Q24H IVPB Last administered on 16:10; Admin Dose 100 MLS/HR; Start 07/17/17 at 15:00 Azithromycin (Zithromax 500mg/ NS (Pmx)) 250 ml @ 250 mls/hr Q24H IVPB Last administered on 07/18/17 16:10; Admin Dose 250 MLS/HR; Start 07/17/17 at 15: 00 Hydralazine HCl (Apresoline) 10 mg Q6H PRN IV sbp>150; Start 07/17/17 at 18:30 Furosemide (Lasix) 40 mg 06 IV ; Start 07/19/17 at 06:00 Clopidogrel Bisulfate (plaVIX) 75 mg DAILY PO Last administered on 07/19/17 08:25; Admin Dose 75 MG; Start 07/18/17 at 12:00 Acetaminophen (Tylenol Tab) 650 mg Q6H PRN PO PAIN AND OR ELEVATED TEMP Last administered on 07/19/17 05:47; Admin Dose 650 MG; Start 07/19/17 at 04:30 Assessment/Plan Chief Complaint/Hosp Course 1. Non-ST elevation myocardial infarction. 2. Severe aortic stenosis 3. Congestive heart failure 4. Acute renal failure 5. Pulmonary hypertension 6. Hypertension 7. Dyslipidemia 8. Anemia Recommendation: I will discontinue the heparin drip. We will keep the patient on DVT prophylaxis dose though. Antiplatelet will be continued. Patient and family have opted for medical therapy only and no aggressive intervention or angiogram per the request. Renal management as per the renal team. I will discontinue Norvasc to avoid hypotension. Coreg will be continued as tolerated. We will decrease the diuresis to twice daily dose of Lasix only for now and adjust accordingly. Further adjustment of the dose of Lasix as per renal team given her renal failure. Off of any ARB or JASIEL inhibitor due to her renal failure. We will monitor on telemetry. Thank you for this referral will continue to follow along with you until Dr. Drew returns on Friday. MARGO BURNS MD [facility] Problems: MARGO BURNS MD Jul 19, 2017 08:38
[2017-07-19] MEDS: FUROSEMIDE 40 MG INJ IV SCH ×2 (09:00→20:50)
[2017-07-19] MEDS: HEPARIN 5,000 UNIT/0.5 ML VIAL SC SCH ×2 (09:21→20:54)
--- NOTE | 2017-07-19 10:21 | PN ---
Date/Time of Note Date/Time of Note DATE: 07/19/17 TIME: 10:14 Assessment/Plan VTE Prophylaxis VTE Prophylaxis Intervention: heparin Lines/Catheters IV Catheter Type (from Nrs): Peripheral IV Urinary Cath still in place: Yes Reason Cath still needed: urinary retention Assessment/Plan Chief Complaint/Hosp Course S: Patient seen by cardiology team this morning. No present chest pain. Off heparin drip now. O: VS (see below) PE: Constitutional: alert, frail, oriented Head: normocephalic Eyes: PERRL ENMT: mucosa pink and moist Neck: supple Respiratory: some diminished breath sounds Cardiovascular: murmurs/extra sounds, regular rate and rhythm Gastrointestinal: bowel sounds, non-tender, soft Extremities: No edema Neurological: lethargic Assessment/Plan: 86-year-old possible STEMI who was transferred from [facility] as, but was reviewed by ER physician here and was determined not to be an actual STEMI, being managed for: 1. Non-ST elevation myocardial infarction -no present chest pain -Continue Plavix, beta-adriana, follow-up cardiology recommendations. - Family opting for medical management at this time, no angiogram at this time. 2. Acute respiratory failure likely secondary to #1 - Acute resp infection likely L basal pneumonia present as well. -Continue current antibiotics, monitor breathing status 3. Acute renal failure rule out chronic kidney disease -patient on IV Lasix, renal team on the case -Continue diuresis per renal and cardiology recommendation is, monitor ins and outs, follow-up BMP in the a.m. 4. Hypochromic anemia likely chronic -hemoglobin stable -Monitor 5. Chronic hypertension -see #1. 6. History of dyslipidemia on simvastatin - 7. Acute decompensated diastolic and valvular congestive heart failure - patient on diuresis, beta-adriana, follow cardiology recommendations 8. Severe aortic stenosis -see #7 Critical care time spent on patient care today equals 45 minutes. Problems: Exam/Review of Systems Vital Signs Vitals Vital Signs Date Time Temp Pulse Resp B/P Pulse Ox O2 Delivery O2 Flow Rate FiO2 07/19/17 09:00 63 18 107/93 94 Nasal Cannula 2.0 07/19/17 07:30 98.1 07/19/17 01:32 27 Intake and Output 07/18/17 07/18/17 07/19/17 15:00 23:00 07:00 Intake Total 127.16 ml 140.5 ml Output Total 1000 ml 215 ml Balance -872.84 ml -74.5 ml Results Result Diagram: 07/19/17 0456 07/19/17 0455 Results 24 hrs Laboratory Tests Test 07/18/17 15:00 07/18/17 15:20 07/18/17 21:19 07/18/17 23:15 Urine Eosinophils % 3.0 H Activated Partial Thromboplast Time 52.9 H 73.0 *H Urine Random Creatinine 40.62 Urine Random Sodium 99 H Urine Protein/Creatinine Ratio 1.47 Urine Total Protein 60.0 H Test 07/19/17 02:27 07/19/17 04:55 07/19/17 04:56 07/19/17 08:18 Activated Partial Thromboplast Time 72.0 *H 61.7 H Sodium Level 140 Potassium Level 3.6 Chloride Level 103 Carbon Dioxide Level 27 Anion Gap 14 Blood Urea Nitrogen 48 H Creatinine 2.27 H Glucose Level 125 Calcium Level 8.6 White Blood Count 9.5 Red Blood Count 3.49 L Hemoglobin 9.3 L Hematocrit 29.9 L Mean Corpuscular Volume 85.7 Mean Corpuscular Hemoglobin 26.6 L Mean Corpuscular Hemoglobin Concent 31.1 L Red Cell Distribution Width 13.3 Platelet Count 232 Mean Platelet Volume 10.4 Neutrophils % 65.0 Lymphocytes % 20.6 Monocytes % 8.8 Eosinophils % 4.7 Basophils % 0.4 Nucleated Red Blood Cells % 0.0 Neutrophils # 6.1 Lymphocytes # 2.0 Monocytes # 0.8 Eosinophils # 0.4 Basophils # 0.0 Nucleated Red Blood Cells # 0.0 Troponin I 1.340 *H Medications Medications Current Medications Carvedilol (Coreg) 12.5 mg BID PO Last administered on 07/19/17 08:26; Admin Dose 12.5 MG; Start 07/17/17 at 21:00 Donepezil HCl (Aricept) 10 mg DAILY PO Last administered on 07/19/17 08:26; Admin Dose 10 MG; Start 07/18/17 at 09:00 Gabapentin (Neurontin) 100 mg BID PO Last administered on 07/19/17 08:25; Admin Dose 100 MG; Start 07/17/17 at 21:00 Pantoprazole (Protonix Tab) 40 mg DAILY@06 PO Last administered on 07/19/17 05:47; Admin Dose 40 MG; Start 07/18/17 at 06:00 Ondansetron HCl (Zofran Inj) 4 mg Q6H PRN IV NAUSEA AND/OR VOMITING Last administered on 07/19/17 04:36; Admin Dose 4 MG; Start 07/17/17 at 09:30 Morphine Sulfate (morphine) 2 mg Q4H PRN IV pain; Start 07/17/17 at 09:30 Docusate Sodium (Colace) 100 mg BID PO Last administered on 07/19/17 08:25; Admin Dose 100 MG; Start 07/17/17 at 21:00 Atorvastatin Calcium (Lipitor) 80 mg HS PO Last administered on 07/18/17 21: 37; Admin Dose 80 MG; Start 07/17/17 at 21:00 Aspirin 81 mg 81 mg DAILY PO Last administered on 07/18/17 16:32; Admin Dose 81 MG; Start 07/18/17 at 09:00 Ceftriaxone Sodium 50 ml @ 100 mls/hr Q24H IVPB Last administered on 16:10; Admin Dose 100 MLS/HR; Start 07/17/17 at 15:00 Azithromycin (Zithromax 500mg/ NS (Pmx)) 250 ml @ 250 mls/hr Q24H IVPB Last administered on 07/18/17 16:10; Admin Dose 250 MLS/HR; Start 07/17/17 at 15: 00 Hydralazine HCl (Apresoline) 10 mg Q6H PRN IV sbp>150; Start 07/17/17 at 18:30 Clopidogrel Bisulfate (plaVIX) 75 mg DAILY PO Last administered on 07/19/17 08:25; Admin Dose 75 MG; Start 07/18/17 at 12:00 Acetaminophen (Tylenol Tab) 650 mg Q6H PRN PO PAIN AND OR ELEVATED TEMP Last administered on 07/19/17 05:47; Admin Dose 650 MG; Start 07/19/17 at 04:30 Furosemide (Lasix) 40 mg BID IV ; Start 07/19/17 at 09:00 Heparin Sodium (Porcine) (Heparin (5000 Units/0.5 ml)) 5,000 unit BID SC Last administered on 07/19/17 09:21; Admin Dose 5,000 UNIT; Start 07/19/17 at 09: 00 STONEY RANKIN Jul 19, 2017 10:21
--- NOTE | 2017-07-19 14:13 | CONS ---
Date/Time of Note Date/Time of Note DATE: 07/19/17 TIME: 14:12 Assessment/Plan Assessment/Plan Chief Complaint/Hosp Course 1. Renal failure, acute versus acute on chronic renal failure. We do not have any baseline labs creatinine on the patient. The patient had a creatinine of 1.9 when was in [facility] on 07/17/2017. Currently, the creatinine is 2.27, BUN of 48. UA showed 65 RBCs with 1 WBC and 2+ protein. 2. A renal ultrasound is done. It shows: Bilateral hyperechoic kidneys consistent with medical renal disease. No hydronephrosis. 3. Non-ST elevation myocardial infarction. 4. Acute congestive heart failure. 5. Pulmonary hypertension. 6. Hypertension. 7. Respiratory failure, intermittent BiPAP use. 8. Systemic inflammatory response syndrome. 9. Severe aortic stenosis. Problems: Additional Assessment/Plan 1. Strict I's and O's, daily weights. 2. Check urine culture quantify protein creatinine ratio, urine electrolytes, urine eosinophils. 3. CK levels to check for rhabdo, slightly elevated. 4. Agree with continuing gentle doses of Lasix. 5. Patient is at high risk for contrast nephropathy due to advanced age underlying disease and underlying kidney failure. However, the patient's family does not want angiogram at this time. 7. Renally dose all meds. 8. Avoid nephrotoxic medication. 9. do not put line in non dominant arm Consultation Date/Type/Reason Admit Date/Time Jul 18, 2017 at 07:08 Initial Consult Date 07/18/2017 Type of Consultation: nephrology Reason for Consultation Dr Marquez Exam/Review of Systems Vital Signs Vitals Vital Signs Date Time Temp Pulse Resp B/P Pulse Ox O2 Delivery O2 Flow Rate FiO2 07/19/17 14:00 68 23 100/46 95 Nasal Cannula 2.0 07/19/17 12:00 99.0 07/19/17 01:32 27 Intake and Output 07/18/17 07/18/17 07/19/17 15:00 23:00 07:00 Intake Total 127.16 ml 140.5 ml Output Total 1000 ml 215 ml Balance -872.84 ml -74.5 ml Exam Constitutional: alert, oriented Neck: supple Respiratory: diminished breath sounds Cardiovascular: regular rate and rhythm Gastrointestinal: soft Extremities: normal pulses Neurological: JACK SPINNER II-XII intact Results Result Diagram: 07/19/17 0456 07/19/17 0455 Results 24 hrs Laboratory Tests Test 07/18/17 15:00 07/18/17 15:20 07/18/17 21:19 07/18/17 23:15 Urine Eosinophils % 3.0 H Activated Partial Thromboplast Time 52.9 H 73.0 *H Urine Random Creatinine 40.62 Urine Random Sodium 99 H Urine Protein/Creatinine Ratio 1.47 Urine Total Protein 60.0 H Test 07/19/17 02:27 07/19/17 04:55 07/19/17 04:56 07/19/17 08:18 Activated Partial Thromboplast Time 72.0 *H 61.7 H Sodium Level 140 Potassium Level 3.6 Chloride Level 103 Carbon Dioxide Level 27 Anion Gap 14 Blood Urea Nitrogen 48 H Creatinine 2.27 H Glucose Level 125 Calcium Level 8.6 White Blood Count 9.5 Red Blood Count 3.49 L Hemoglobin 9.3 L Hematocrit 29.9 L Mean Corpuscular Volume 85.7 Mean Corpuscular Hemoglobin 26.6 L Mean Corpuscular Hemoglobin Concent 31.1 L Red Cell Distribution Width 13.3 Platelet Count 232 Mean Platelet Volume 10.4 Neutrophils % 65.0 Lymphocytes % 20.6 Monocytes % 8.8 Eosinophils % 4.7 Basophils % 0.4 Nucleated Red Blood Cells % 0.0 Neutrophils # 6.1 Lymphocytes # 2.0 Monocytes # 0.8 Eosinophils # 0.4 Basophils # 0.0 Nucleated Red Blood Cells # 0.0 Troponin I 1.340 *H Medications Medications Current Medications Carvedilol (Coreg) 12.5 mg BID PO Last administered on 07/19/17 08:26; Admin Dose 12.5 MG; Start 07/17/17 at 21:00 Donepezil HCl (Aricept) 10 mg DAILY PO Last administered on 07/19/17 08:26; Admin Dose 10 MG; Start 07/18/17 at 09:00 Gabapentin (Neurontin) 100 mg BID PO Last administered on 07/19/17 08:25; Admin Dose 100 MG; Start 07/17/17 at 21:00 Pantoprazole (Protonix Tab) 40 mg DAILY@06 PO Last administered on 07/19/17 05:47; Admin Dose 40 MG; Start 07/18/17 at 06:00 Ondansetron HCl (Zofran Inj) 4 mg Q6H PRN IV NAUSEA AND/OR VOMITING Last administered on 07/19/17 04:36; Admin Dose 4 MG; Start 07/17/17 at 09:30 Morphine Sulfate (morphine) 2 mg Q4H PRN IV pain; Start 07/17/17 at 09:30 Docusate Sodium (Colace) 100 mg BID PO Last administered on 07/19/17 08:25; Admin Dose 100 MG; Start 07/17/17 at 21:00 Atorvastatin Calcium (Lipitor) 80 mg HS PO Last administered on 07/18/17 21: 37; Admin Dose 80 MG; Start 07/17/17 at 21:00 Aspirin 81 mg 81 mg DAILY PO Last administered on 07/18/17 16:32; Admin Dose 81 MG; Start 07/18/17 at 09:00 Ceftriaxone Sodium (Rocephin) 50 ml @ 100 mls/hr Q24H IVPB Last administered on 07/18/17 16:10; Admin Dose 100 MLS/HR; Start 07/17/17 at 15:00 Hydralazine HCl (Apresoline) 10 mg Q6H PRN IV sbp>150; Start 07/17/17 at 18:30 Clopidogrel Bisulfate (plaVIX) 75 mg DAILY PO Last administered on 07/19/17 08:25; Admin Dose 75 MG; Start 07/18/17 at 12:00 Acetaminophen (Tylenol Tab) 650 mg Q6H PRN PO PAIN AND OR ELEVATED TEMP Last administered on 07/19/17 05:47; Admin Dose 650 MG; Start 07/19/17 at 04:30 Furosemide (Lasix) 40 mg BID IV ; Start 07/19/17 at 09:00 Heparin Sodium (Porcine) 5000 unit 5,000 unit BID SC Last administered on 07/19 09:21; Admin Dose 5,000 UNIT; Start 07/19/17 at 09:00 Azithromycin (Zithromax 500mg/ NS (Pmx)) 250 ml @ 250 mls/hr Q24H IVPB ; Start 07/19/17 at 16:00 ALIREZA RODRIGUEZ Jul 19, 2017 14:13
[2017-07-19] MEDS: CEFTRIAXONE 1 GM/50 ML (PMX) 50 ML IVPB SCH (15:43)
[2017-07-19] MEDS ORDERED: AZITHROMYCIN 500MG/NS (PMX) 250 ML IVPB SCH (16:00)
[2017-07-19] MEDS ORDERED: AZITHROMYCIN 250 MG TAB PO SCH (18:00)
[2017-07-19] MEDS: ATORVASTATIN 20 MG TAB PO SCH (20:49)
[2017-07-20] VITALS (8 sets, daily range): BP systolic 94–127; BP diastolic 52–62; PULSE 68–79; RESP 19
[2017-07-20] MEDS: PANTOPRAZOLE (EC) 40 MG TAB PO SCH (06:26)
[2017-07-20 08:04] LABS: BASOPHILS % 0.2 % (0.0-2.0); EOSINOPHILS # 0.2 10^3/ul (0.0-0.5); EOSINOPHILS % 2.5 % (0.0-7.0); HEMATOCRIT 27.6 % (37.0-47.0); HEMOGLOBIN 8.9 g/dl (12.0-16.0); LYMPHOCYTES # 2.3 10^3/ul (0.8-2.9); LYMPHOCYTES % 28.7 % (15.0-51.0); MEAN CORPUSCULAR HEMOGLOBIN 27.4 pg (29.0-33.0); MEAN CORPUSCULAR HGB CONC 32.2 g/dl (32.0-37.0); MEAN CORPUSCULAR VOLUME 84.9 fl (82.0-101.0); MEAN PLATELET VOLUME 10.7 fl (7.4-10.4); MONOCYTE # 0.7 10^3/ul (0.3-0.9); MONOCYTES % 8.4 % (0.0-11.0); NEUTROPHIL # 4.8 10^3/ul (1.6-7.5); NEUTROPHILS % 59.1 % (39.0-77.0); PLATELET COUNT 227 10^3/UL (140-415); RED BLOOD COUNT 3.25 10^6/ul (4.20-5.40); RED CELL DISTRIBUTION WIDTH 13.4 % (11.5-14.5); WHITE BLOOD COUNT 8.1 10^3/ul (4.8-10.8)
[2017-07-20 08:34] LABS: ALBUMIN 3.2 g/dl (3.3-4.9); ALBUMIN/GLOBULIN RATIO 0.94; BILIRUBIN,INDIRECT 0.2 mg/dl (0-1.1); BILIRUBIN,TOTAL 0.2 mg/dl (0.2-1.3); CALCIUM 8.7 mg/dl (8.4-10.2); CREATININE 2.8 mg/dl (0.44-1.00); MAGNESIUM 2.1 mg/dl (1.7-2.5); POTASSIUM 3.9 mmol/L (3.5-5.1); TOTAL PROTEIN 6.6 g/dl (6.1-8.1)
[2017-07-20 08:40] LABS: CK-MB 1.61 ng/ml (0.0-2.4)
[2017-07-20 09:00] LABS: THYROID STIMULATING HORMONE 0.447 MIU/L (0.465-4.680)
[2017-07-20] MEDS: DOCUSATE SODIUM 100 MG CAP PO SCH (09:00)
[2017-07-20] MEDS: GABAPENTIN 100 MG CAP PO SCH (09:00)
[2017-07-20] MEDS: DONEPEZIL 10 MG TAB PO SCH (09:00)
[2017-07-20 09:03] LABS: TROPONIN-I 0.773 ng/ml (0.00-0.12)
[2017-07-20] MEDS: ASPIRIN 81 MG TAB PO SCH (09:35)
[2017-07-20] MEDS: CLOPIDOGREL 75 MG TAB PO SCH (09:35)
[2017-07-20] MEDS: FUROSEMIDE 40 MG INJ IV SCH (09:36)
[2017-07-20] MEDS: HEPARIN 5,000 UNIT/0.5 ML VIAL SC SCH (09:37)
[2017-07-20] MEDS: ONDANSETRON 4 MG INJ IV PRN (09:58)
--- NOTE | 2017-07-20 12:20 | CONS ---
Date/Time of Note Date/Time of Note DATE: 07/20/17 TIME: 12:13 Consult Date/Type/Reason Admit Date/Time Jul 18, 2017 at 07:08 Type of Consultation: cv Subjective Cardiology follow-up progress note: Subjective: Case discussed with the staff and Dr Toribio. d/w with patient daughter extensively. Patient remained in sinus rhythm. However patient had episode of complete A-V dissociation. According to the RN during the time patient was unresponsive for a short time but she came back on her own. At this point she denies any chest pain or pressure to me. She states that her breathing has improved and she is on oxygen only. He denies any palpitation to me. Family is still insists on medical therapy only and in fact they want to take the patient home today. They want to spend Reed with her.. Objective: General: no acute distress HEENT: NC/AT. pupils are equal. round. NECK: NO JVD. no stridor. CV: RRR. systolic ejection murmur; no gallop or rubs. PULM: no wheezing mild rhonchi. GI: SOFT, NT, ND, no rebound or guarding Extremity: trace B/L LE edema. no clubbing. neuro: awake and alert, OX3. Psych: calm and pleasant rectal: deferred .mild : Deferred. Chest x-ray was reviewed. Objective Vital Signs Date Time Temp Pulse Resp B/P Pulse Ox O2 Delivery O2 Flow Rate FiO2 07/20/17 11:46 97.9 75 19 94/55 95 07/20/17 06:12 2.0 07/19/17 20:00 Nasal Cannula 07/19/17 01:32 27 Intake and Output 07/19/17 07/19/17 07/20/17 14:59 22:59 06:59 Intake Total 200 ml 100 ml 150 ml Output Total 95 ml 600 ml Balance 200 ml 5 ml -450 ml Results/Medications Result Diagram: 07/20/17 0708 07/20/17 0708 Results 24 hrs Laboratory Tests Test 07/20/17 07:08 White Blood Count 8.1 Red Blood Count 3.25 L Hemoglobin 8.9 L Hematocrit 27.6 L Mean Corpuscular Volume 84.9 Mean Corpuscular Hemoglobin 27.4 L Mean Corpuscular Hemoglobin Concent 32.2 Red Cell Distribution Width 13.4 Platelet Count 227 Mean Platelet Volume 10.7 H Neutrophils % 59.1 Lymphocytes % 28.7 Monocytes % 8.4 Eosinophils % 2.5 Basophils % 0.2 Nucleated Red Blood Cells % 0.0 Neutrophils # 4.8 Lymphocytes # 2.3 Monocytes # 0.7 Eosinophils # 0.2 Basophils # 0.0 Nucleated Red Blood Cells # 0.0 Sodium Level 141 Potassium Level 3.9 Chloride Level 102 Carbon Dioxide Level 27 Anion Gap 16 Blood Urea Nitrogen 62 H Creatinine 2.80 H Glucose Level 105 Calcium Level 8.7 Magnesium Level 2.1 Total Bilirubin 0.2 Direct Bilirubin 0.00 Indirect Bilirubin 0.2 Aspartate Amino Transf (AST/SGOT) 28 Alanine Aminotransferase (ALT/SGPT) 34 Alkaline Phosphatase 112 Creatine Kinase 49 Creatine Kinase Index 3.3 Creatinine Kinase MB (Mass) 1.61 Troponin I 0.773 *H B-Type Natriuretic Peptide 18585 H Total Protein 6.6 Albumin 3.2 L Globulin 3.40 H Albumin/Globulin Ratio 0.94 Thyroid Stimulating Hormone (TSH) 0.447 L Medications Current Medications Carvedilol (Coreg) 12.5 mg BID PO Last administered on 07/20/17 09:36; Admin Dose 12.5 MG; Start 07/17/17 at 21:00 Donepezil HCl (Aricept) 10 mg DAILY PO Last administered on 07/19/17 08:26; Admin Dose 10 MG; Start 07/18/17 at 09:00 Gabapentin (Neurontin) 100 mg BID PO Last administered on 07/19/17 20:50; Admin Dose 100 MG; Start 07/17/17 at 21:00 Pantoprazole (Protonix Tab) 40 mg DAILY@06 PO Last administered on 07/20/17 06:26; Admin Dose 40 MG; Start 07/18/17 at 06:00 Ondansetron HCl (Zofran Inj) 4 mg Q6H PRN IV NAUSEA AND/OR VOMITING Last administered on 07/20/17 09:58; Admin Dose 4 MG; Start 07/17/17 at 09:30 Morphine Sulfate (morphine) 2 mg Q4H PRN IV pain; Start 07/17/17 at 09:30 Atorvastatin Calcium (Lipitor) 80 mg HS PO Last administered on 07/19/17 20: 49; Admin Dose 80 MG; Start 07/17/17 at 21:00 Aspirin 81 mg 81 mg DAILY PO Last administered on 07/20/17 09:35; Admin Dose 81 MG; Start 07/18/17 at 09:00 Ceftriaxone Sodium (Rocephin) 50 ml @ 100 mls/hr Q24H IVPB Last administered on 07/19/17 15:43; Admin Dose 100 MLS/HR; Start 07/17/17 at 15:00 Hydralazine HCl (Apresoline) 10 mg Q6H PRN IV sbp>150; Start 07/17/17 at 18:30 Clopidogrel Bisulfate (plaVIX) 75 mg DAILY PO Last administered on 07/20/17 09:35; Admin Dose 75 MG; Start 07/18/17 at 12:00 Acetaminophen (Tylenol Tab) 650 mg Q6H PRN PO PAIN AND OR ELEVATED TEMP Last administered on 07/19/17 05:47; Admin Dose 650 MG; Start 07/19/17 at 04:30 Furosemide (Lasix) 40 mg BID IV Last administered on 07/20/17 09:36; Admin Dose 40 MG; Start 07/19/17 at 09:00 Heparin Sodium (Porcine) (Heparin (5000 Units/0.5 ml)) 5,000 unit BID SC Last administered on 07/20/17 09:37; Admin Dose 5,000 UNIT; Start 07/19/17 at 09: 00 Azithromycin (Zithromax) 500 mg Q24H PO Last administered on 07/19/17 17:40; Admin Dose 500 MG; Start 07/19/17 at 18:00 Docusate Sodium (Colace) 100 mg Q12 PRN PO GASTROINTESTINAL UPSET; Start 07/20 at 21:00 Assessment/Plan Chief Complaint/Hosp Course 1. Non-ST elevation myocardial infarction. 2. Severe aortic stenosis 3. Congestive heart failure 4. Acute renal failure 5. Pulmonary hypertension 6. Hypertension 7. Dyslipidemia 8. Anemia 9. Intermittent complete AV dissociation. Recommendation: I will discontinue the heparin drip. We will keep the patient on DVT prophylaxis dose though. Antiplatelet will be continued. Patient and family have opted for medical therapy only and no aggressive intervention or angiogram per the request. Renal management as per the renal team. Coreg will be discontinued given the episodes of A-V dissociation/complete heart block. Further adjustment of the dose of Lasix as per renal team given her renal failure. Off of any ARB or JASIEL inhibitor due to her renal failure. It was recommended to the patient and the family to stay in the hospital for close monitoring especially given her new complete heart block. However the family and the patient insists on going home and they want signed AMA. Thank you for this referral will continue to follow along with you until Dr. Drew returns on Friday. MARGO BURNS MD [facility] Problems: MARGO BURNS MD Jul 20, 2017 12:20
--- NOTE | 2017-07-20 12:25 | DS ---
Date/Time of Note Date/Time of Note DATE: 07/20/17 TIME: 12:23 Discharge Summary Admission/Discharge Info Admit Date/Time Jul 18, 2017 at 07:08 Discharge Date/Time Discharge Diagnosis 1. Non-ST elevation myocardial infarction -no present chest pain -Continue Plavix, beta-adriana, follow-up cardiology recommendations. - Family opting for medical management at this time, no angiogram at this time. 2. Acute respiratory failure likely secondary to #1 - Acute resp infection likely L basal pneumonia present as well. -Continue current antibiotics, monitor breathing status 3. Acute renal failure rule out chronic kidney disease -patient on IV Lasix, renal team on the case -Continue diuresis per renal and cardiology recommendation is, monitor ins and outs, follow-up BMP in the a.m. 4. Hypochromic anemia likely chronic -hemoglobin stable -Monitor 5. Chronic hypertension -see #1. 6. History of dyslipidemia on simvastatin - 7. Acute decompensated diastolic and valvular congestive heart failure - patient on diuresis, beta-adriana, follow cardiology recommendations 8. Severe aortic stenosis -see #7 9. Heart block Procedures 2D ECHO: Conclusions Normal left ventricular systolic function. Normal left ventricular cavity size. Moderate concentric left ventricular hypertrophy. Ejection fraction is visually estimated at 55 %. Tissue Doppler/Mitral Doppler indices are consistent with impaired relaxation (Stage I diastolic dysfunction). Normal right ventricular size. Normal right ventricular systolic function. There is mild enlargement of left atrium. The right atrium is normal in size. Severe aortic stenosis. Trace aortic valve regurgitation. Mild mitral valve regurgitation. Estimated peak PA systolic pressure 71 mmHg. There is mild tricuspid regurgitation. There is mild pulmonic regurgitation. Normal pericardium with no significant pericardial effusion. Hospital Course 86-year-old possible STEMI who was transferred from [facility] as, but was reviewed by ER physician here and was determined not to be an actual STEMI, medically managed for non-ST elevation [place] patient also found with pulmonary hypertension, severe aortic stenosis, also complete heart block. -Patient left AMA Home Meds Reported Medications Omeprazole* (Omeprazole*) 20 Mg Capsule.dr, 20 MG PO DAILY, #30 CAP 07/17/17 Donepezil* (Aricept*) 10 Mg Tablet, 10 MG PO DAILY, TAB 07/17/17 Carvedilol* (Carvedilol*) 12.5 Mg Tablet, 12.5 MG PO BID, #60 TAB 07/17/17 Gabapentin* (Gabapentin*) 100 Mg Capsule, 100 MG PO BID, #90 CAP 07/17/17 Amlodipine Besylate* (Norvasc*) 5 Mg Tablet, 5 MG PO DAILY, TAB 07/17/17 Simvastatin* (Zocor*) 20 Mg Tablet, 20 MG PO QHS, #30 TAB 07/17/17 Primary Care Provider Jose J Florian Pending Labs Laboratory Tests Test 07/20/17 07:08 White Blood Count 8.110^3/ul (4.8-10.8) Red Blood Count 3.2510^6/ul (4.20-5.40) Hemoglobin 8.9g/dl (12.0-16.0) Hematocrit 27.6% (37.0-47.0) Mean Corpuscular Volume 84.9fl (82.0-101.0) Mean Corpuscular Hemoglobin 27.4pg (29.0-33.0) Mean Corpuscular Hemoglobin Concent 32.2g/dl (32.0-37.0) Red Cell Distribution Width 13.4% (11.5-14.5) Platelet Count 77543^3/UL (140-415) Mean Platelet Volume 10.7fl (7.4-10.4) Neutrophils % 59.1% (39.0-77.0) Lymphocytes % 28.7% (15.0-51.0) Monocytes % 8.4% (0.0-11.0) Eosinophils % 2.5% (0.0-7.0) Basophils % 0.2% (0.0-2.0) Nucleated Red Blood Cells % 0.0/100WBC (0.0-0.0) Neutrophils # 4.810^3/ul (1.6-7.5) Lymphocytes # 2.310^3/ul (0.8-2.9) Monocytes # 0.710^3/ul (0.3-0.9) Eosinophils # 0.210^3/ul (0.0-0.5) Basophils # 0.010^3/ul (0.0-0.1) Nucleated Red Blood Cells # 0.010^3/ul (0.0-0.0) Sodium Level 141mmol/L (135-144) Potassium Level 3.9mmol/L (3.5-5.1) Chloride Level 102mmol/L (97-110) Carbon Dioxide Level 27mmol/L (21-31) Anion Gap 16 (8-16) Blood Urea Nitrogen 62mg/dl (7-20) Creatinine 2.80mg/dl (0.44-1.00) Glucose Level 105mg/dl (70-220) Calcium Level 8.7mg/dl (8.4-10.2) Magnesium Level 2.1mg/dl (1.7-2.5) Total Bilirubin 0.2mg/dl (0.2-1.3) Direct Bilirubin 0.00mg/dl (0.00-0.20) Indirect Bilirubin 0.2mg/dl (0-1.1) Aspartate Amino Transf (AST/SGOT) 28IU/L (15-46) Alanine Aminotransferase (ALT/SGPT) 34IU/L (13-69) Alkaline Phosphatase 112IU/L (42-121) Creatine Kinase 49IU/L (23-200) Creatine Kinase Index 3.3 Creatinine Kinase MB (Mass) 1.61ng/ml (0.0-2.4) Troponin I 0.773ng/ml (0.00-0.12) B-Type Natriuretic Peptide 13819SU/ML (0-450) Total Protein 6.6g/dl (6.1-8.1) Albumin 3.2g/dl (3.3-4.9) Globulin 3.40g/dl (1.3-3.2) Albumin/Globulin Ratio 0.94 Thyroid Stimulating Hormone (TSH) 0.447MIU/L (0.465-4.680) STONEY RANKIN Jul 20, 2017 12:25
--- NOTE | 2017-07-20 12:57 | CONS ---
Date/Time of Note Date/Time of Note DATE: 07/20/17 TIME: 12:55 Assessment/Plan Assessment/Plan Chief Complaint/Hosp Course 1. Renal failure, acute versus acute on chronic renal failure. We do not have any baseline labs creatinine on the patient. The patient had a creatinine of 1.9 when was in [facility] on 07/17/2017. creatinine was 2.27, now 2.80, BUN was 48, now 62. UA showed 65 RBCs with 1 WBC and 2+ protein. 2. A renal ultrasound is done. It shows: Bilateral hyperechoic kidneys consistent with medical renal disease. No hydronephrosis. 3. Non-ST elevation myocardial infarction. 4. Acute congestive heart failure. 5. Pulmonary hypertension. 6. Hypertension, controlled. 7. Respiratory failure, intermittent BiPAP use. 8. Systemic inflammatory response syndrome. 9. Severe aortic stenosis. Problems: Additional Assessment/Plan 1. Strict I's and O's, daily weights. 2. do not put line in non dominant arm 3. CK levels to check for rhabdo, slightly elevated. 4. Agree with continuing gentle doses of Lasix BID. 5. Patient is at high risk for contrast nephropathy due to advanced age underlying disease and underlying kidney failure. However, the patient's family does not want angiogram at this time. 7. Renally dose all meds. 8. Avoid nephrotoxic medication. Consultation Date/Type/Reason Admit Date/Time Jul 18, 2017 at 07:08 Initial Consult Date 07/18/2017 Type of Consultation: nephrology Reason for Consultation Dr Marquez 24 HR Interval Summary Constitutional: improved, no complaints Exam/Review of Systems Vital Signs Vitals Vital Signs Date Time Temp Pulse Resp B/P Pulse Ox O2 Delivery O2 Flow Rate FiO2 07/20/17 12:13 79 07/20/17 11:46 97.9 19 94/55 95 07/20/17 06:12 2.0 07/19/17 20:00 Nasal Cannula 07/19/17 01:32 27 Intake and Output 07/19/17 07/19/17 07/20/17 15:00 23:00 07:00 Intake Total 200 ml 100 ml 150 ml Output Total 95 ml 600 ml Balance 200 ml 5 ml -450 ml Exam Constitutional: alert, oriented ENMT: nl external ears & nose Neck: supple Respiratory: diminished breath sounds Cardiovascular: regular rate and rhythm Gastrointestinal: soft Results Result Diagram: 07/20/17 0708 07/20/17 0708 Results 24 hrs Laboratory Tests Test 07/20/17 07:08 White Blood Count 8.1 Red Blood Count 3.25 L Hemoglobin 8.9 L Hematocrit 27.6 L Mean Corpuscular Volume 84.9 Mean Corpuscular Hemoglobin 27.4 L Mean Corpuscular Hemoglobin Concent 32.2 Red Cell Distribution Width 13.4 Platelet Count 227 Mean Platelet Volume 10.7 H Neutrophils % 59.1 Lymphocytes % 28.7 Monocytes % 8.4 Eosinophils % 2.5 Basophils % 0.2 Nucleated Red Blood Cells % 0.0 Neutrophils # 4.8 Lymphocytes # 2.3 Monocytes # 0.7 Eosinophils # 0.2 Basophils # 0.0 Nucleated Red Blood Cells # 0.0 Sodium Level 141 Potassium Level 3.9 Chloride Level 102 Carbon Dioxide Level 27 Anion Gap 16 Blood Urea Nitrogen 62 H Creatinine 2.80 H Glucose Level 105 Calcium Level 8.7 Magnesium Level 2.1 Total Bilirubin 0.2 Direct Bilirubin 0.00 Indirect Bilirubin 0.2 Aspartate Amino Transf (AST/SGOT) 28 Alanine Aminotransferase (ALT/SGPT) 34 Alkaline Phosphatase 112 Creatine Kinase 49 Creatine Kinase Index 3.3 Creatinine Kinase MB (Mass) 1.61 Troponin I 0.773 *H B-Type Natriuretic Peptide 31843 H Total Protein 6.6 Albumin 3.2 L Globulin 3.40 H Albumin/Globulin Ratio 0.94 Thyroid Stimulating Hormone (TSH) 0.447 L Medications Medications Current Medications Donepezil HCl (Aricept) 10 mg DAILY PO Last administered on 07/19/17 08:26; Admin Dose 10 MG; Start 07/18/17 at 09:00 Gabapentin (Neurontin) 100 mg BID PO Last administered on 07/19/17 20:50; Admin Dose 100 MG; Start 07/17/17 at 21:00 Pantoprazole (Protonix Tab) 40 mg DAILY@06 PO Last administered on 07/20/17 06:26; Admin Dose 40 MG; Start 07/18/17 at 06:00 Ondansetron HCl (Zofran Inj) 4 mg Q6H PRN IV NAUSEA AND/OR VOMITING Last administered on 07/20/17 09:58; Admin Dose 4 MG; Start 07/17/17 at 09:30 Morphine Sulfate (morphine) 2 mg Q4H PRN IV pain; Start 07/17/17 at 09:30 Atorvastatin Calcium (Lipitor) 80 mg HS PO Last administered on 07/19/17 20: 49; Admin Dose 80 MG; Start 07/17/17 at 21:00 Aspirin 81 mg 81 mg DAILY PO Last administered on 07/20/17 09:35; Admin Dose 81 MG; Start 07/18/17 at 09:00 Ceftriaxone Sodium (Rocephin) 50 ml @ 100 mls/hr Q24H IVPB Last administered on 07/19/17 15:43; Admin Dose 100 MLS/HR; Start 07/17/17 at 15:00 Hydralazine HCl (Apresoline) 10 mg Q6H PRN IV sbp>150; Start 07/17/17 at 18:30 Clopidogrel Bisulfate (plaVIX) 75 mg DAILY PO Last administered on 07/20/17 09:35; Admin Dose 75 MG; Start 07/18/17 at 12:00 Acetaminophen (Tylenol Tab) 650 mg Q6H PRN PO PAIN AND OR ELEVATED TEMP Last administered on 07/19/17 05:47; Admin Dose 650 MG; Start 07/19/17 at 04:30 Furosemide (Lasix) 40 mg BID IV Last administered on 07/20/17 09:36; Admin Dose 40 MG; Start 07/19/17 at 09:00 Heparin Sodium (Porcine) (Heparin (5000 Units/0.5 ml)) 5,000 unit BID SC Last administered on 07/20/17 09:37; Admin Dose 5,000 UNIT; Start 07/19/17 at 09: 00 Azithromycin (Zithromax) 500 mg Q24H PO Last administered on 07/19/17 17:40; Admin Dose 500 MG; Start 07/19/17 at 18:00 Docusate Sodium (Colace) 100 mg Q12 PRN PO GASTROINTESTINAL UPSET; Start 07/20 at 21:00 ALIREZA RODRIGUEZ Jul 20, 2017 12:57
[2017-07-20] MEDS ORDERED: GUAIFENESIN 20 MG/ML 5ML CUP PO PRN (13:00)
[2017-07-20] MEDS ORDERED: DOCUSATE SODIUM 100 MG CAP PO PRN (21:00)
== END 2017-07-20 14:20 | disposition left against medical advice (07) | DRG 280 ==
LOC: E/R 06:18 → ICU 07-18 07:08 → MS4 07-19 15:22
PROVIDERS: ADMIT Internal Medicine; ATTEND Internal Medicine
PROC: 5A09457 Assistance with Respiratory Ventilation, 24-96 Consecutive Hours, Continuous Positive Airway Pressure (ICD-10-PCS; principal; 2017-07-17)
DX: I21.4 Non-ST elevation (NSTEMI) myocardial infarction (principal); J96.01 Acute respiratory failure with hypoxia; J18.9 Pneumonia, unspecified organism; I50.33 Acute on chronic diastolic (congestive) heart failure; N17.9 Acute kidney failure, unspecified; E11.22 Type 2 diabetes mellitus with diabetic chronic kidney disease; R65.10 Systemic inflammatory response syndrome (SIRS) of non-infectious origin without acute organ dysfunction; I13.0 Hypertensive heart and chronic kidney disease with heart failure and stage 1 through stage 4 chronic kidney disease, or unspecified chronic kidney disease; I27.20 Pulmonary hypertension, unspecified; I35.0 Nonrheumatic aortic (valve) stenosis; N18.9 Chronic kidney disease, unspecified; D50.9 Iron deficiency anemia, unspecified; I45.9 Conduction disorder, unspecified; Z79.02 Long term (current) use of antithrombotics/antiplatelets; Z79.82 Long term (current) use of aspirin
CPT/HCPCS: 36415; 36600; 71010; 76775; 80048; 80053; 80061; 80076; 81001; 81003; 82550; 82553; 82570; 82803; 83735; 83880; 84155; 84300; 84443; 84484; 85025; 85610; 85730; 87040; 87081; 87086; 87400; 89190; 93005; 93306; 94660; 96374; 96375; 96376; J0360; J0456; J0696; J1644; J1940; J2405; J3475; J7030

== ENCOUNTER 2017-07-23 02:24 | Inpatient (IN) | END 2017-07-27 18:43 | disposition home or self-care (01) | DRG 242 ==

== ENCOUNTER 2017-08-27 11:31 | Inpatient (IN) | END 2017-08-28 14:26 | disposition hospice, home (50) | DRG 291 ==

== ENCOUNTER 2017-10-08 10:45 | Inpatient (IN) | END 2017-10-10 16:11 | disposition home or self-care (01) | DRG 291 ==

== ENCOUNTER 2017-11-04 11:53 | Inpatient (IN) | END 2017-11-09 15:32 | disposition hospice, home (50) | DRG 291 ==